=== PATIENT | male | born 1930 | race Caucasian/White ===

== ENCOUNTER 2018-12-23 19:41 | Inpatient (IN) ==
[2018-12-23] MEDS ORDERED: ADENOSINE 6 MG/2 ML VIAL ONE (19:53)
[2018-12-23] MEDS ORDERED: SODIUM CHLORIDE 0.9% 1,000 ML IV ONE (19:55)
[2018-12-23] MEDS ORDERED: DILTIAZEM 50 MG/10 ML VIAL IV ONE (20:00)
[2018-12-23] MEDS ORDERED: MIDAZOLAM 2 MG/2 ML VIAL ONE (20:00)
[2018-12-23] MEDS ORDERED: dilTIAZem Drip 125 MG/125 ML PREMIX IV ONE (20:06)
[2018-12-23] MEDS ORDERED: ADENOSINE 6 MG/2 ML VIAL IV STA ×2 (20:11)
[2018-12-23] MEDS ORDERED: AMIODARONE INJ 150 MG in DEXTROSE 5% 100 ML IV STA (20:11)
[2018-12-23] MEDS ORDERED: SODIUM CHLORIDE 0.9% 500 ML IV STA (20:11)
[2018-12-23] MEDS ORDERED: DILTIAZEM 50 MG/10 ML VIAL IV STA (20:11)
[2018-12-23] MEDS ORDERED: AMIODARONE 150 MG/3 ML VIAL ONE (20:17)
[2018-12-23] MEDS ORDERED: POTASSIUM CHLORIDE 20 MEQ TABLET PO ONE ×2 (20:27→22:00)
[2018-12-23] MEDS ORDERED: MAGNESIUM SULF RIDER 50 ML IV ONE (20:28)
[2018-12-23] MEDS ORDERED: dilTIAZem Drip 125 MG/125 ML PREMIX IV SCH ×2 (20:30→23:45)
[2018-12-23 20:35] LABS: Basophils % 0.2 % (0.0-0.8); Hematocrit 37.1 VOL% (42.0-52.0); Hemoglobin 12.2 GM/DL (14.0-18.0); Immature Granulocytes % 0.3 %; Immature Granulocytes Absolute 0.03 #; Lymphocytes # 0.9 10*3/uL (1.4-4.0); Lymphocytes % 9.9 % (21.2-54.2); Mean Corpuscular HGB Conc 32.9 GM/DL (32-36); Mean Corpuscular Volume 96.9 FL (87-102); Mean Platelet Volume 11.8 FL (9.6-12.0); Monocytes % 8.5 % (1.7-12.7); Neutrophils % 81.1 % (38.7-73.9); Platelet Count 164 T/CUMM (130-400); Red Blood Count 3.83 MC/CUMM (3.8-5.5); Red Cell Distribution Width 13.4 % (9.3-17.3); White Blood Count 9.3 T/CUMM (4-12)
[2018-12-23 20:42] LABS: PT Patient Result 10.8 SECS (9.6-12.2)
[2018-12-23] MEDS: AMIODARONE INJ 450 MG in DEXTROSE 5% 241 ML IV SCH (20:55)
[2018-12-23 20:56] LABS: Bilirubin,Total 0.9 MG/DL (0.2-1.0); CKMB % 12.9 %; Calcium 8.8 MG/DL (8.5-10.1); Osmolality,Calculated 296.3 MOS/KG (273-304); Thyroid Stimulating Hormone 1.49 uIU/ml (0.358-3.74); Total Protein 6.9 G/DL (6.4-8.3)
[2018-12-23 21:00] LABS: Troponin I 3.63 NG/ML (0.00-0.045)
[2018-12-23] MEDS ORDERED: MAGNESIUM SULF RIDER 2 GM in PREMIX 1 EACH IV ONE (21:59)
[2018-12-23] MEDS ORDERED: FUROSEMIDE 20 MG/2 ML VIAL IV STA (22:30)
[2018-12-23] MEDS ORDERED: GLUCAGON 1 MG VIAL IM PRN (22:42)
[2018-12-23] MEDS ORDERED: MAGNESIUM SULF RIDER 2 GM in PREMIX 1 EACH IV PRN (22:42)
[2018-12-23] MEDS ORDERED: POTASSIUM CHLORIDE 20 MEQ TABLET PO PRN (22:42)
[2018-12-23] MEDS ORDERED: MECLIZINE 25 MG TABLET PO PRN (22:42)
[2018-12-23] MEDS ORDERED: DEXTROSE 50% 25 GM/50 ML VIAL IV PRN (22:42)
[2018-12-23] MEDS ORDERED: MAGNESIUM SULF RIDER 4 GM in PREMIX 1 EACH IV PRN (22:42)
[2018-12-23 22:48] LABS: Apearance,Urine CLEAR (Clear); Bilirubin,Urine Negative (Negative); Blood, Urine Small mg/dL (Negative); Glucose,Urine (UA) Negative (Negative); Hyaline Casts,Urine 42 /LPF (0-3); Ketones,Urine Negative (Negative); Mucus,Urine Occasional /LPF (Occasional); Nitrite,Urine Negative (Negative); Protein,Urine 100 MG/DL; RBC,Urine 3 /HPF (0-4); Squamous Epithelial Cell,Urine Occasional /HPF (0-10); Urine Color Yellow (Yellow); Urine Urobilinogen < 2.0 EU/DL (0.2-1.0); WBC,Urine 4 /HPF (0-6)
[2018-12-23] MEDS ORDERED: METOPROLOL TARTRATE 5 MG/5 ML VIAL IV ONE (23:05)
[2018-12-23] MEDS: METOPROLOL TARTRATE 5 MG/5 ML VIAL IV SCH ×3 (23:06→23:17)
[2018-12-23 23:45] LABS: CKMB % 13.6 %
[2018-12-23 23:47] LABS: Troponin I 4.83 NG/ML (0.00-0.045)
[2018-12-23] MEDS: ASCORBIC ACID 500 MG TABLET PO SCH (23:56)
[2018-12-24] MEDS ORDERED: ENOXAPARIN 100 MG/ML SYRINGE SUBCUT SCH
[2018-12-24] MEDS ORDERED: CLORAZEPATE 7.5 MG TABLET PO PRN (00:07)
[2018-12-24] MEDS: SODIUM CHLORIDE 0.9% 1,000 ML IV SCH ×2 (00:14→21:59)
[2018-12-24] MEDS: INSULIN REGULAR 100 UNIT/ML SUBCUT SCH ×4 (00:14→18:09)
[2018-12-24] MEDS: METOPROLOL TARTRATE 5 MG/5 ML VIAL IV SCH ×2 (00:18→06:09)
[2018-12-24] MEDS ORDERED: HEPARIN/NACL 0.9% 2 UNITS/ML 1,000 ML IV ONE (00:57)
[2018-12-24] MEDS ORDERED: LIDOCAINE 1% 20 ML VIAL ONE ×2 (00:57→01:04)
[2018-12-24] MEDS ORDERED: METOPROLOL TARTRATE 5 MG/5 ML VIAL IV ONE ×2 (01:01→01:27)
[2018-12-24] MEDS ORDERED: NITROGLYCERIN DRIP 50 MG/250 ML BOTTLE IV ONE (01:12)
[2018-12-24] MEDS ORDERED: VERAPAMIL 5 MG/2 ML VIAL ONE (01:12)
[2018-12-24] MEDS ORDERED: MIDAZOLAM 2 MG/2 ML VIAL ONE (01:15)
[2018-12-24] MEDS ORDERED: HYDROmorphone 2 MG/1 ML VIAL ONE (01:23)
[2018-12-24] MEDS ORDERED: BIVALIRUDIN 250 MG VIAL IV ONE (01:24)
[2018-12-24 01:39] LABS: Apearance,Urine Slightly Hazy (Clear); Bacteria,Urine Occasional /HPF (Few); Bilirubin,Urine Negative (Negative); Blood, Urine Small mg/dL (Negative); Glucose,Urine (UA) Negative (Negative); Hyaline Casts,Urine 12 /LPF (0-3); Ketones,Urine Negative (Negative); Mucus,Urine Occasional /LPF (Occasional); Nitrite,Urine Negative (Negative); Protein,Urine 100 MG/DL; RBC,Urine 3 /HPF (0-4); Squamous Epithelial Cell,Urine Occasional /HPF (0-10); Urine Color Yellow (Yellow); Urine Urobilinogen < 2.0 EU/DL (0.2-1.0); WBC,Urine 5 /HPF (0-6)
[2018-12-24] MEDS ORDERED: TICAGRELOR 90 MG TABLET ONE (01:40)
[2018-12-24 04:34] LABS: Basophils % 0.2 % (0.0-0.8); Hematocrit 38.7 VOL% (42.0-52.0); Hemoglobin 11.8 GM/DL (14.0-18.0); Immature Granulocytes % 0.6 %; Immature Granulocytes Absolute 0.06 #; Lymphocytes % 10.1 % (21.2-54.2); Mean Corpuscular HGB Conc 30.5 GM/DL (32-36); Mean Corpuscular Volume 102.9 FL (87-102); Mean Platelet Volume 11.8 FL (9.6-12.0); Monocytes % 8.4 % (1.7-12.7); Neutrophils % 80.7 % (38.7-73.9); Platelet Count 145 T/CUMM (130-400); Red Blood Count 3.76 MC/CUMM (3.8-5.5); Red Cell Distribution Width 13.5 % (9.3-17.3); White Blood Count 9.8 T/CUMM (4-12)
[2018-12-24] MEDS: ONDANSETRON 4 MG/2 ML VIAL IV PRN ×2 (04:37→09:29)
[2018-12-24 05:22] LABS: CKMB % 12.9 %
[2018-12-24 05:24] LABS: Troponin I 7.08 NG/ML (0.00-0.045)
[2018-12-24] MEDS: AMIODARONE INJ 450 MG in DEXTROSE 5% 241 ML IV SCH ×2 (05:25→21:35)
[2018-12-24 05:28] LABS: Albumin 2.8 G/DL (3.4-5.0); Bilirubin,Total 0.8 MG/DL (0.2-1.0); Calcium 8.7 MG/DL (8.5-10.1); Osmolality,Calculated 298.3 MOS/KG (273-304); Risk Ratio 3.19; Thyroid Stimulating Hormone 2.37 uIU/ml (0.358-3.74); Total Protein 6.6 G/DL (6.4-8.3); VLDL CHOLESTEROL 14.2 MG/DL
[2018-12-24 07:20] LABS: CKMB % 14.6 %
[2018-12-24 07:27] LABS: Troponin I 11.2 NG/ML (0.00-0.045)
[2018-12-24] MEDS ORDERED: FUROSEMIDE 20 MG/2 ML VIAL IV SCH (08:00)
[2018-12-24] MEDS ORDERED: CARVEDILOL 6.25 MG TABLET PO SCH (08:00)
[2018-12-24] MEDS ORDERED: AMIODARONE INJ 450 MG in DEXTROSE 5% 241 ML IV SCH ×2 (08:00→12:30)
[2018-12-24] MEDS ORDERED: hydroCHLOROthiazide 25 MG TABLET PO SCH (09:00)
[2018-12-24] MEDS ORDERED: Ergocalciferol (Vitamin D2) 2,000 UNIT PO SCH (09:00)
[2018-12-24] MEDS ORDERED: ALLOPURINOL 100 MG TABLET PO SCH (09:00)
[2018-12-24] MEDS ORDERED: LISINOPRIL 20 MG TABLET PO SCH (09:00)
[2018-12-24] MEDS ORDERED: POTASSIUM CHLORIDE 10 MEQ TABLET PO SCH (09:00)
[2018-12-24] MEDS ORDERED: glipiZIDE 10 MG TABLET PO SCH (09:00)
[2018-12-24] MEDS ORDERED: FUROSEMIDE 40 MG TABLET PO SCH (09:00)
[2018-12-24] MEDS: TICAGRELOR 90 MG TABLET PO SCH ×2 (09:16→20:10)
[2018-12-24] MEDS: ASCORBIC ACID 500 MG TABLET PO SCH ×2 (09:17→20:10)
[2018-12-24] MEDS: PANTOPRAZOLE 40 MG TABLET PO SCH (09:17)
[2018-12-24] MEDS ORDERED: CARVEDILOL 3.125 MG TABLET PO SCH (11:01)
[2018-12-24] MEDS ORDERED: AMIODARONE 200 MG TABLET PO SCH (11:15)
[2018-12-24 12:06] LABS: % Iron Saturation 18.3 % (18-50); Uric Acid 8.2 MG/DL (3.5-7.2)
[2018-12-24] MEDS ORDERED: MAGNESIUM HYDROXIDE SUSP 30 ML UDCUP PO ONE (12:39)
[2018-12-24] MEDS ORDERED: BISACODYL 5 MG TABLET PO PRN (12:40)
[2018-12-24 14:52] LABS: Creatinine,Urine Random 137 MG/DL; Total Protein,Urine Random 301 MG/DL; Urea Nitrogen, Urine Random 253 MG/DL
[2018-12-24] MEDS: SODIUM BICARB INJ 100 MEQ in STERILE WATER INJ 1,000 ML IV SCH (14:54)
[2018-12-24] MEDS: miSOPROStol 200 MCG TABLET PO SCH ×3 (14:54→20:10)
[2018-12-24 15:24] LABS: CKMB % 7.5 %
[2018-12-24 15:30] LABS: Troponin I 15.2 NG/ML (0.00-0.045)
[2018-12-24] MEDS: ALBUTEROL/IPRATROPIUM 3 ML NEB RESP TX SCH ×2 (18:06→20:25)
[2018-12-24 18:11] LABS: ABG Oxygen Saturation 37.7 % (95-100); ABG PCO2 47.8 MM HG (35-48); ABG PH 7.227 (7.35-7.45); ABG TCO2 18.3 MMOL/L (23-27); Allen Test Positive
[2018-12-24 18:15] LABS: ABG PO2 28.8 MM HG (80-95)
[2018-12-24] MEDS: ASPIRIN EC 81 MG TABLET PO SCH (18:15)
[2018-12-24] MEDS: methylPREDNISolone SOD SUC 40 MG/1 ML VIAL IV SCH (18:16)
[2018-12-24] MEDS: ALFUZOSIN 10 MG TABLET PO SCH (18:16)
[2018-12-24 18:38] LABS: ABG Base Excess -8.5 MMOL/L (-2.5-2.5); ABG HCO3 17.6 MMOL/L (20-26); ABG Oxygen Saturation 95.8 % (95-100); ABG PCO2 36.9 MM HG (35-48); ABG PH 7.285 (7.35-7.45); ABG PO2 97.1 MM HG (80-95); ABG TCO2 15.8 MMOL/L (23-27); Allen Test Positive
[2018-12-24] MEDS: ROSUVASTATIN 20 MG TABLET PO SCH (20:11)
[2018-12-24] MEDS: CARVEDILOL 3.125 MG TABLET PO SCH (20:11)
[2018-12-24] MEDS ORDERED: SIMVASTATIN 20 MG TABLET PO SCH (21:00)
[2018-12-25] MEDS: ALBUTEROL/IPRATROPIUM 3 ML NEB RESP TX SCH ×4 (00:25→19:15)
[2018-12-25] MEDS: INSULIN REGULAR 100 UNIT/ML SUBCUT SCH ×4 (01:54→18:12)
[2018-12-25] MEDS: methylPREDNISolone SOD SUC 40 MG/1 ML VIAL IV SCH ×3 (01:54→17:16)
[2018-12-25 04:00] LABS: Basophils % 0.1 % (0.0-0.8); Hematocrit 33.1 VOL% (42.0-52.0); Hemoglobin 10.5 GM/DL (14.0-18.0); Immature Granulocytes % 0.8 %; Lymphocytes # 0.6 10*3/uL (1.4-4.0); Lymphocytes % 4.5 % (21.2-54.2); Mean Corpuscular HGB Conc 31.7 GM/DL (32-36); Mean Corpuscular Volume 99.1 FL (87-102); Mean Platelet Volume 12.5 FL (9.6-12.0); Monocytes % 4.7 % (1.7-12.7); Neutrophils % 89.9 % (38.7-73.9); Platelet Count 109 T/CUMM (130-400); Red Blood Count 3.34 MC/CUMM (3.8-5.5); Red Cell Distribution Width 13.2 % (9.3-17.3); White Blood Count 13.1 T/CUMM (4-12)
[2018-12-25 04:24] LABS: Band Neutrophils 1 % (0-10); Hypochromasia 1+; Lymphocytes 3 % (20-55); Ovalocytes Slight; Platelet Estimate Decreased; Segmented Neutrophils 92 % (50-85); Total Cells Counted 100
[2018-12-25 04:40] LABS: Albumin 2.6 G/DL (3.4-5.0); Calcium 7.5 MG/DL (8.5-10.1); Calcium 7.8 MG/DL (8.5-10.1); Osmolality,Calculated 305.3 MOS/KG (273-304)
[2018-12-25 05:12] LABS: CKMB % 3.1 %
[2018-12-25 05:13] LABS: Troponin I 12.1 NG/ML (0.00-0.045)
[2018-12-25] MEDS: SODIUM BICARB INJ 100 MEQ in STERILE WATER INJ 1,000 ML IV SCH ×4 (06:18→23:33)
[2018-12-25] MEDS: miSOPROStol 200 MCG TABLET PO SCH ×4 (09:21→20:11)
[2018-12-25] MEDS: ASPIRIN EC 81 MG TABLET PO SCH (09:22)
[2018-12-25] MEDS: TICAGRELOR 90 MG TABLET PO SCH ×2 (09:22→20:11)
[2018-12-25] MEDS: ASCORBIC ACID 500 MG TABLET PO SCH ×2 (09:22→20:11)
[2018-12-25] MEDS: CARVEDILOL 3.125 MG TABLET PO SCH ×2 (09:22→17:14)
[2018-12-25] MEDS: PANTOPRAZOLE 40 MG TABLET PO SCH (09:22)
[2018-12-25 12:16] LABS: Albumin 2.7 G/DL (3.4-5.0); Calcium 7.3 MG/DL (8.5-10.1); Osmolality,Calculated 307.5 MOS/KG (273-304)
[2018-12-25 12:18] LABS: CKMB % 2.8 %
[2018-12-25 12:20] LABS: Troponin I 9.61 NG/ML (0.00-0.045)
[2018-12-25] MEDS ORDERED: FUROSEMIDE 40 MG/4 ML VIAL IV ONE (12:44)
[2018-12-25] MEDS ORDERED: FUROSEMIDE 40 MG/4 ML VIAL ONE (12:49)
[2018-12-25] MEDS: PIPERACILLIN/TAZOBACTAM 3,375 MG in SODIUM CHLORIDE 0.9% 100 ML IV SCH (13:05)
[2018-12-25] MEDS: AMIODARONE INJ 450 MG in DEXTROSE 5% 241 ML IV SCH (14:18)
[2018-12-25] MEDS: ALFUZOSIN 10 MG TABLET PO SCH (17:11)
[2018-12-25] MEDS: ROSUVASTATIN 20 MG TABLET PO SCH (20:11)
[2018-12-25] MEDS: AMIODARONE 200 MG TABLET PO SCH (20:11)
[2018-12-26] MEDS: PIPERACILLIN/TAZOBACTAM 3,375 MG in SODIUM CHLORIDE 0.9% 100 ML IV SCH ×2 (00:09→11:00)
[2018-12-26] MEDS: INSULIN REGULAR 100 UNIT/ML SUBCUT SCH ×4 (00:09→17:48)
[2018-12-26] MEDS: ALBUTEROL/IPRATROPIUM 3 ML NEB RESP TX SCH ×4 (00:19→19:40)
[2018-12-26] MEDS: methylPREDNISolone SOD SUC 40 MG/1 ML VIAL IV SCH ×3 (02:41→17:54)
[2018-12-26 04:19] LABS: Basophils % 0.1 % (0.0-0.8); Hematocrit 31.6 VOL% (42.0-52.0); Hemoglobin 10.4 GM/DL (14.0-18.0); Immature Granulocytes % 0.7 %; Immature Granulocytes Absolute 0.09 #; Lymphocytes # 0.5 10*3/uL (1.4-4.0); Lymphocytes % 3.8 % (21.2-54.2); Mean Corpuscular HGB Conc 32.9 GM/DL (32-36); Mean Corpuscular Volume 94.6 FL (87-102); Mean Platelet Volume 13.1 FL (9.6-12.0); Monocytes % 4.6 % (1.7-12.7); NRBC # 0.05 10*3/uL; Neutrophils % 90.8 % (38.7-73.9); Platelet Count 112 T/CUMM (130-400); Red Blood Count 3.34 MC/CUMM (3.8-5.5); Red Cell Distribution Width 13.1 % (9.3-17.3); White Blood Count 13.5 T/CUMM (4-12)
[2018-12-26 04:36] LABS: Calcium 7.1 MG/DL (8.5-10.1)
[2018-12-26 04:38] LABS: CKMB % 2.2 %
[2018-12-26 04:41] LABS: Albumin 2.4 G/DL (3.4-5.0); Calcium 6.8 MG/DL (8.5-10.1); Hypochromasia 1+; Lymphocytes 1 % (20-55); Osmolality,Calculated 309.1 MOS/KG (273-304); Ovalocytes Slight; Platelet Estimate Decreased; Segmented Neutrophils 95 % (50-85); Total Cells Counted 100
[2018-12-26 04:49] LABS: Troponin I 6.57 NG/ML (0.00-0.045)
[2018-12-26] MEDS: CARVEDILOL 3.125 MG TABLET PO SCH ×2 (09:58→17:48)
[2018-12-26] MEDS: PANTOPRAZOLE 40 MG TABLET PO SCH (09:59)
[2018-12-26] MEDS: TICAGRELOR 90 MG TABLET PO SCH ×2 (09:59→20:12)
[2018-12-26] MEDS: AMIODARONE 200 MG TABLET PO SCH (09:59)
[2018-12-26] MEDS: ASCORBIC ACID 500 MG TABLET PO SCH ×2 (09:59→20:12)
[2018-12-26] MEDS: ASPIRIN EC 81 MG TABLET PO SCH (09:59)
[2018-12-26] MEDS: miSOPROStol 200 MCG TABLET PO SCH (09:59)
[2018-12-26] MEDS: SODIUM BICARB INJ 100 MEQ in STERILE WATER INJ 1,000 ML IV SCH ×2 (10:46→22:00)
[2018-12-26] MEDS: ALFUZOSIN 10 MG TABLET PO SCH (17:48)
[2018-12-26] MEDS: ROSUVASTATIN 20 MG TABLET PO SCH (20:12)
[2018-12-27] MEDS: PIPERACILLIN/TAZOBACTAM 3,375 MG in SODIUM CHLORIDE 0.9% 100 ML IV SCH (00:16)
[2018-12-27] MEDS: INSULIN REGULAR 100 UNIT/ML SUBCUT SCH ×4 (00:16→18:38)
[2018-12-27] MEDS: ALBUTEROL/IPRATROPIUM 3 ML NEB RESP TX SCH ×4 (01:50→19:52)
[2018-12-27] MEDS: methylPREDNISolone SOD SUC 40 MG/1 ML VIAL IV SCH ×2 (03:09→09:44)
[2018-12-27 05:57] LABS: Hematocrit 32.9 VOL% (42.0-52.0); Hemoglobin 11.1 GM/DL (14.0-18.0); Immature Granulocytes Absolute 0.11 #; Lymphocytes # 0.4 10*3/uL (1.4-4.0); Lymphocytes % 3.7 % (21.2-54.2); Mean Corpuscular HGB Conc 33.7 GM/DL (32-36); Mean Corpuscular Volume 92.9 FL (87-102); Mean Platelet Volume 12.7 FL (9.6-12.0); Monocytes % 4.6 % (1.7-12.7); NRBC # 0.03 10*3/uL; Neutrophils % 90.7 % (38.7-73.9); Platelet Count 116 T/CUMM (130-400); Red Blood Count 3.54 MC/CUMM (3.8-5.5); Red Cell Distribution Width 12.9 % (9.3-17.3)
[2018-12-27 06:16] LABS: Platelet Estimate Adequate; Polychromasia Few; Segmented Neutrophils 95 % (50-85); Total Cells Counted 100
[2018-12-27 06:50] LABS: Albumin 2.2 G/DL (3.4-5.0); Calcium 6.5 MG/DL (8.5-10.1)
[2018-12-27] MEDS ORDERED: FUROSEMIDE 40 MG/4 ML VIAL IV ONE (09:08)
[2018-12-27] MEDS: ASCORBIC ACID 500 MG TABLET PO SCH ×2 (09:47→21:00)
[2018-12-27] MEDS: ASPIRIN EC 81 MG TABLET PO SCH (09:47)
[2018-12-27] MEDS: CARVEDILOL 3.125 MG TABLET PO SCH ×2 (09:47→18:38)
[2018-12-27] MEDS: PANTOPRAZOLE 40 MG TABLET PO SCH (09:48)
[2018-12-27] MEDS: TICAGRELOR 90 MG TABLET PO SCH ×2 (09:48→20:59)
[2018-12-27] MEDS ORDERED: CALCIUM GLUCONATE 2,000 MG in SODIUM CHLORIDE 0.9% 100 ML IV ONE (11:00)
[2018-12-27] MEDS: cefTRIAXone 2,000 MG in SYRINGE 1 EACH IV SCH (11:37)
[2018-12-27] MEDS: INSULIN GLARGINE 100 UNIT/ML SUBCUT SCH (12:20)
[2018-12-27] MEDS: AZITHROMYCIN INJ 250 MG in SODIUM CHLORIDE 0.9% 250 ML IV SCH (13:47)
[2018-12-27] MEDS: miSOPROStol 200 MCG TABLET PO SCH ×3 (13:53→21:00)
[2018-12-27] MEDS: ACETAMINOPHEN/CODEINE 300-30 MG TABLET PO PRN (16:20)
[2018-12-27] MEDS: CLORAZEPATE 7.5 MG TABLET PO PRN (17:05)
[2018-12-27] MEDS: ALFUZOSIN 10 MG TABLET PO SCH (18:38)
[2018-12-27] MEDS: METHOCARBAMOL 750 MG TABLET PO PRN (19:36)
[2018-12-27] MEDS: ROSUVASTATIN 20 MG TABLET PO SCH (20:59)
[2018-12-27] MEDS: SODIUM BICARB INJ 100 MEQ in STERILE WATER INJ 1,000 ML IV SCH (22:24)
[2018-12-28] MEDS: ALBUTEROL/IPRATROPIUM 3 ML NEB RESP TX SCH ×4 (00:24→19:33)
[2018-12-28] MEDS: INSULIN REGULAR 100 UNIT/ML SUBCUT SCH ×4 (01:29→18:13)
[2018-12-28 04:42] LABS: Basophils % 0.1 % (0.0-0.8); Hematocrit 35.8 VOL% (42.0-52.0); Hemoglobin 12.2 GM/DL (14.0-18.0); Immature Granulocytes Absolute 0.14 #; Lymphocytes # 0.4 10*3/uL (1.4-4.0); Lymphocytes % 3.1 % (21.2-54.2); Mean Corpuscular HGB Conc 34.1 GM/DL (32-36); Mean Corpuscular Volume 92.3 FL (87-102); Mean Platelet Volume 12.9 FL (9.6-12.0); Monocytes % 6.5 % (1.7-12.7); NRBC # 0.02 10*3/uL; Neutrophils % 89.3 % (38.7-73.9); Platelet Count 140 T/CUMM (130-400); Red Blood Count 3.88 MC/CUMM (3.8-5.5); Red Cell Distribution Width 12.7 % (9.3-17.3); White Blood Count 13.4 T/CUMM (4-12)
[2018-12-28 05:03] LABS: Calcium 7.2 MG/DL (8.5-10.1); Osmolality,Calculated 309.8 MOS/KG (273-304)
[2018-12-28 05:06] LABS: Albumin 2.3 G/DL (3.4-5.0); Calcium 6.9 MG/DL (8.5-10.1)
[2018-12-28 05:14] LABS: Hypochromasia Slight; Lymphocytes 3 % (20-55); Platelet Estimate Adequate; Segmented Neutrophils 91 % (50-85); Total Cells Counted 100
[2018-12-28 05:24] LABS: CKMB % 2.2 %
[2018-12-28 05:25] LABS: Troponin I 2.55 NG/ML (0.00-0.045)
[2018-12-28] MEDS: ASPIRIN EC 81 MG TABLET PO SCH (08:41)
[2018-12-28] MEDS: ASCORBIC ACID 500 MG TABLET PO SCH ×2 (08:41→20:10)
[2018-12-28] MEDS: miSOPROStol 200 MCG TABLET PO SCH ×4 (08:41→20:09)
[2018-12-28] MEDS: TICAGRELOR 90 MG TABLET PO SCH ×2 (08:41→20:09)
[2018-12-28] MEDS: CARVEDILOL 3.125 MG TABLET PO SCH ×2 (08:42→16:48)
[2018-12-28] MEDS: INSULIN GLARGINE 100 UNIT/ML SUBCUT SCH (08:42)
[2018-12-28] MEDS: PANTOPRAZOLE 40 MG TABLET PO SCH (08:43)
[2018-12-28] MEDS ORDERED: FUROSEMIDE 100 MG/10 ML VIAL IV ONE (09:14)
[2018-12-28] MEDS: metOLazone 5 MG TABLET PO SCH (09:27)
[2018-12-28] MEDS: ACETAMINOPHEN/CODEINE 300-30 MG TABLET PO PRN (09:28)
[2018-12-28] MEDS: HYDROCORTISONE 2.5% RECTAL CREAM 30 GM TUBE TOP PRN ×2 (09:40→17:45)
[2018-12-28] MEDS ORDERED: FUROSEMIDE 40 MG/4 ML VIAL ONE (09:43)
[2018-12-28] MEDS ORDERED: FUROSEMIDE 20 MG/2 ML VIAL ONE (09:43)
[2018-12-28] MEDS: OXYBUTYNIN 5 MG TABLET PO PRN ×2 (09:44→21:29)
[2018-12-28] MEDS: cefTRIAXone 2,000 MG in SYRINGE 1 EACH IV SCH (10:56)
[2018-12-28] MEDS: AZITHROMYCIN INJ 250 MG in SODIUM CHLORIDE 0.9% 250 ML IV SCH (13:10)
[2018-12-28] MEDS: FUROSEMIDE 100 MG/10 ML VIAL IV SCH (16:10)
[2018-12-28] MEDS: METHOCARBAMOL 750 MG TABLET PO PRN (17:22)
[2018-12-28] MEDS: ONDANSETRON 4 MG/2 ML VIAL IV PRN (17:33)
[2018-12-28] MEDS: ALFUZOSIN 10 MG TABLET PO SCH (18:13)
[2018-12-28] MEDS: ROSUVASTATIN 20 MG TABLET PO SCH (20:09)
[2018-12-28] MEDS ORDERED: POTASSIUM CHLORIDE 20 MEQ TABLET PO ONE (20:26)
[2018-12-29] MEDS: INSULIN REGULAR 100 UNIT/ML SUBCUT SCH ×4 (00:09→18:09)
[2018-12-29] MEDS: ALBUTEROL/IPRATROPIUM 3 ML NEB RESP TX SCH ×4 (01:17→19:37)
[2018-12-29 04:30] LABS: Basophils % 0.1 % (0.0-0.8); Hematocrit 35.1 VOL% (42.0-52.0); Hemoglobin 11.8 GM/DL (14.0-18.0); Immature Granulocytes % 0.9 %; Immature Granulocytes Absolute 0.13 #; Lymphocytes # 0.6 10*3/uL (1.4-4.0); Lymphocytes % 3.9 % (21.2-54.2); Mean Corpuscular HGB Conc 33.6 GM/DL (32-36); Mean Corpuscular Volume 92.4 FL (87-102); Mean Platelet Volume 12.3 FL (9.6-12.0); Neutrophils % 85.1 % (38.7-73.9); Platelet Count 152 T/CUMM (130-400); Red Cell Distribution Width 12.7 % (9.3-17.3); White Blood Count 14.5 T/CUMM (4-12)
[2018-12-29] MEDS: OXYBUTYNIN 5 MG TABLET PO PRN ×2 (04:40→18:10)
[2018-12-29 04:45] LABS: Calcium 6.8 MG/DL (8.5-10.1)
[2018-12-29 05:07] LABS: Lymphocytes 1 % (20-55); Platelet Estimate Adequate; Segmented Neutrophils 93 % (50-85); Total Cells Counted 100
[2018-12-29] MEDS: metOLazone 5 MG TABLET PO SCH (09:32)
[2018-12-29] MEDS: miSOPROStol 200 MCG TABLET PO SCH (09:32)
[2018-12-29] MEDS: CARVEDILOL 3.125 MG TABLET PO SCH ×2 (09:57→18:09)
[2018-12-29] MEDS: INSULIN GLARGINE 100 UNIT/ML SUBCUT SCH (09:57)
[2018-12-29] MEDS: ASCORBIC ACID 500 MG TABLET PO SCH ×2 (09:58→20:10)
[2018-12-29] MEDS: PANTOPRAZOLE 40 MG TABLET PO SCH (09:58)
[2018-12-29] MEDS: ASPIRIN EC 81 MG TABLET PO SCH (09:58)
[2018-12-29] MEDS: TICAGRELOR 90 MG TABLET PO SCH ×2 (09:58→20:10)
[2018-12-29] MEDS: ALBUMIN 25% 25 GM in PREMIX 1 EACH IV SCH ×2 (10:12→18:09)
[2018-12-29] MEDS ORDERED: AMIODARONE 200 MG TABLET PO ONE (10:29)
[2018-12-29] MEDS ORDERED: POTASSIUM CHLORIDE 20 MEQ TABLET PO ONE ×2 (10:30→17:59)
[2018-12-29] MEDS ORDERED: SODIUM CHLORIDE 0.9% 1,000 ML IV SCH (11:30)
[2018-12-29] MEDS: cefTRIAXone 2,000 MG in SYRINGE 1 EACH IV SCH (11:50)
[2018-12-29] MEDS: FUROSEMIDE 100 MG/10 ML VIAL IV SCH ×2 (11:50→18:09)
[2018-12-29 14:16] LABS: Apearance,Urine Slightly Hazy (Clear); Bacteria,Urine Occasional /HPF (Few); Bilirubin,Urine Negative (Negative); Blood, Urine Large mg/dL (Negative); Creatinine,Urine Random 42 MG/DL; Glucose,Urine (UA) Negative (Negative); Hyaline Casts,Urine 3 /LPF (0-3); Ketones,Urine Negative (Negative); Mucus,Urine Occasional /LPF (Occasional); Nitrite,Urine Negative (Negative); Protein,Urine Negative; RBC,Urine 185 /HPF (0-4); Squamous Epithelial Cell,Urine Occasional /HPF (0-10); Transitional Epi Cells,Urine Occasional /HPF (<1); Urea Nitrogen, Urine Random 381 MG/DL; Urine Color Yellow (Yellow); Urine Specific Gravity 1.009 (1.001-1.035); Urine Urobilinogen < 2.0 EU/DL (0.2-1.0); WBC,Urine 8 /HPF (0-6)
[2018-12-29] MEDS: ALFUZOSIN 10 MG TABLET PO SCH (18:09)
[2018-12-29] MEDS: AMIODARONE 200 MG TABLET PO SCH (20:10)
[2018-12-29] MEDS: ROSUVASTATIN 20 MG TABLET PO SCH (20:10)
[2018-12-29] MEDS: CLORAZEPATE 7.5 MG TABLET PO PRN (21:25)
[2018-12-29] MEDS: MORPHINE 4 MG/1 ML VIAL IV PRN (21:47)
[2018-12-30] MEDS: INSULIN REGULAR 100 UNIT/ML SUBCUT SCH ×4 (00:29→19:04)
[2018-12-30] MEDS: ALBUTEROL/IPRATROPIUM 3 ML NEB RESP TX SCH ×4 (02:00→19:26)
[2018-12-30] MEDS: ALBUMIN 25% 25 GM in PREMIX 1 EACH IV SCH ×3 (02:55→19:09)
[2018-12-30 04:00] LABS: Basophils % 0.2 % (0.0-0.8); Eosinophils # 0.2 10*3/uL (0.0-0.87); Eosinophils % 1.8 % (0.00-10.9); Hematocrit 31.5 VOL% (42.0-52.0); Hemoglobin 10.5 GM/DL (14.0-18.0); Immature Granulocytes % 0.6 %; Immature Granulocytes Absolute 0.07 #; Lymphocytes # 0.4 10*3/uL (1.4-4.0); Lymphocytes % 3.6 % (21.2-54.2); Mean Corpuscular HGB Conc 33.3 GM/DL (32-36); Mean Corpuscular Volume 92.1 FL (87-102); Mean Platelet Volume 11.9 FL (9.6-12.0); Monocytes % 9.5 % (1.7-12.7); Neutrophils % 84.3 % (38.7-73.9); Platelet Count 134 T/CUMM (130-400); Red Blood Count 3.42 MC/CUMM (3.8-5.5); Red Cell Distribution Width 12.7 % (9.3-17.3); White Blood Count 12.2 T/CUMM (4-12)
[2018-12-30 04:23] LABS: Calcium 6.9 MG/DL (8.5-10.1); Osmolality,Calculated 316.5 MOS/KG (273-304)
[2018-12-30 04:45] LABS: Eosinophils 3 % (0-10); Lymphocytes 4 % (20-55); Platelet Estimate Decreased; Polychromasia Few; Segmented Neutrophils 88 % (50-85); Total Cells Counted 100
[2018-12-30] MEDS ORDERED: POTASSIUM CHLORIDE 20 MEQ TABLET PO ONE (07:58)
[2018-12-30] MEDS ORDERED: POTASSIUM CHLORIDE 20 MEQ/15 ML UDCUP PO ONE ×2 (08:01→12:00)
[2018-12-30] MEDS: ASCORBIC ACID 500 MG TABLET PO SCH ×2 (08:59→20:53)
[2018-12-30] MEDS: AMIODARONE 200 MG TABLET PO SCH ×2 (09:00→20:53)
[2018-12-30] MEDS: TICAGRELOR 90 MG TABLET PO SCH ×2 (09:01→20:54)
[2018-12-30] MEDS: POTASSIUM CHLORIDE 20 MEQ TABLET PO SCH (09:01)
[2018-12-30] MEDS: CARVEDILOL 3.125 MG TABLET PO SCH ×2 (09:01→17:49)
[2018-12-30] MEDS: ASPIRIN EC 81 MG TABLET PO SCH (09:01)
[2018-12-30] MEDS: INSULIN GLARGINE 100 UNIT/ML SUBCUT SCH (09:01)
[2018-12-30] MEDS: PANTOPRAZOLE 40 MG TABLET PO SCH (09:01)
[2018-12-30] MEDS: OXYBUTYNIN 5 MG TABLET PO PRN (09:08)
[2018-12-30] MEDS: MORPHINE 4 MG/1 ML VIAL IV PRN (09:08)
[2018-12-30] MEDS: FUROSEMIDE 100 MG/10 ML VIAL IV SCH (09:24)
[2018-12-30] MEDS ORDERED: DEXT 5% NACL 0.45% KCL 20 MEQ 20 MEQ/1,000 ML BAG IV SCH ×2 (11:00→17:19)
[2018-12-30] MEDS: cefTRIAXone 2,000 MG in SYRINGE 1 EACH IV SCH (11:45)
[2018-12-30] MEDS ORDERED: MAGNESIUM HYDROXIDE SUSP 30 ML UDCUP PO PRN (12:23)
[2018-12-30] MEDS ORDERED: BISACODYL 10 MG SUPP RECTAL PRN (15:31)
[2018-12-30] MEDS ORDERED: LEVALBUTEROL 1.25 MG/3 ML NEB RESP TX ONE (17:16)
[2018-12-30] MEDS ORDERED: FUROSEMIDE 40 MG/4 ML VIAL IV ONE ×2 (17:18→18:15)
[2018-12-30] MEDS ORDERED: FUROSEMIDE 40 MG/4 ML VIAL ONE (17:26)
[2018-12-30] MEDS: ALFUZOSIN 10 MG TABLET PO SCH (17:49)
[2018-12-30 17:58] LABS: ABG Base Excess 5.3 MMOL/L (-2.5-2.5); ABG HCO3 29.1 MMOL/L (20-26); ABG PCO2 42.8 MM HG (35-48); ABG PH 7.451 (7.35-7.45); ABG PO2 64.7 MM HG (80-95); ABG TCO2 26.6 MMOL/L (23-27); Allen Test Positive; Pt O2 Delivery Device Other
[2018-12-30] MEDS: ROSUVASTATIN 20 MG TABLET PO SCH (20:53)
[2018-12-30] MEDS: CLORAZEPATE 7.5 MG TABLET PO PRN (20:53)
[2018-12-31] MEDS: INSULIN REGULAR 100 UNIT/ML SUBCUT SCH ×5 (01:11→23:52)
[2018-12-31] MEDS: ALBUTEROL/IPRATROPIUM 3 ML NEB RESP TX SCH ×4 (01:46→19:18)
[2018-12-31] MEDS: ALBUMIN 25% 25 GM in PREMIX 1 EACH IV SCH ×3 (03:00→19:05)
[2018-12-31 03:23] LABS: Basophils % 0.1 % (0.0-0.8); Eosinophils % 0.1 % (0.00-10.9); Hematocrit 33.5 VOL% (42.0-52.0); Hemoglobin 11.2 GM/DL (14.0-18.0); Immature Granulocytes % 0.8 %; Immature Granulocytes Absolute 0.14 #; Lymphocytes # 0.3 10*3/uL (1.4-4.0); Lymphocytes % 1.9 % (21.2-54.2); Mean Corpuscular HGB Conc 33.4 GM/DL (32-36); Mean Corpuscular Volume 93.1 FL (87-102); Mean Platelet Volume 11.9 FL (9.6-12.0); Neutrophils % 91.1 % (38.7-73.9); Platelet Count 128 T/CUMM (130-400); Red Cell Distribution Width 12.6 % (9.3-17.3); White Blood Count 16.7 T/CUMM (4-12)
[2018-12-31 03:51] LABS: Calcium 7.6 MG/DL (8.5-10.1); Osmolality,Calculated 315.3 MOS/KG (273-304)
[2018-12-31 04:06] LABS: Anisocytosis 1+; Elliptocytes Few; Lymphocytes 1 % (20-55); Macrocytosis 1+; Platelet Estimate Decreased; Segmented Neutrophils 95 % (50-85); Total Cells Counted 100
[2018-12-31] MEDS: AMIODARONE 200 MG TABLET PO SCH ×2 (08:25→21:03)
[2018-12-31] MEDS: CARVEDILOL 3.125 MG TABLET PO SCH (08:26)
[2018-12-31] MEDS: PANTOPRAZOLE 40 MG TABLET PO SCH (08:26)
[2018-12-31] MEDS: ASPIRIN EC 81 MG TABLET PO SCH (08:26)
[2018-12-31] MEDS: POTASSIUM CHLORIDE 20 MEQ TABLET PO SCH (08:26)
[2018-12-31] MEDS: TICAGRELOR 90 MG TABLET PO SCH ×2 (08:26→21:03)
[2018-12-31] MEDS: ASCORBIC ACID 500 MG TABLET PO SCH ×2 (08:26→21:04)
[2018-12-31] MEDS: INSULIN GLARGINE 100 UNIT/ML SUBCUT SCH (08:27)
[2018-12-31] MEDS: POTASSIUM CHLORIDE 20 MEQ/15 ML UDCUP PO SCH ×2 (08:27→16:11)
[2018-12-31] MEDS ORDERED: METOPROLOL TARTRATE 5 MG/5 ML VIAL IV ONE (09:46)
[2018-12-31] MEDS: NYSTATIN 500,000 UNIT/5 ML UDCUP SWISH/SWAL SCH ×4 (09:49→21:04)
[2018-12-31] MEDS ORDERED: SPIRONOLACTONE 25 MG TABLET PO SCH (11:00)
[2018-12-31] MEDS ORDERED: methylPREDNISolone SOD SUC 40 MG/1 ML VIAL IV ONE (12:03)
[2018-12-31] MEDS: miSOPROStol 200 MCG TABLET PO SCH ×3 (12:18→21:04)
[2018-12-31] MEDS: cefTRIAXone 2,000 MG in SYRINGE 1 EACH IV SCH (14:50)
[2018-12-31] MEDS: PIPERACILLIN/TAZOBACTAM 3,375 MG in SODIUM CHLORIDE 0.9% 100 ML IV SCH ×2 (15:50→23:30)
[2018-12-31] MEDS: CARVEDILOL 12.5 MG TABLET PO SCH (17:07)
[2018-12-31] MEDS: ALFUZOSIN 10 MG TABLET PO SCH (17:07)
[2018-12-31] MEDS: methylPREDNISolone SOD SUC 40 MG/1 ML VIAL IV SCH (21:03)
[2018-12-31] MEDS: ROSUVASTATIN 20 MG TABLET PO SCH (21:04)
[2018-12-31] MEDS: METHOCARBAMOL 750 MG TABLET PO PRN (22:11)
[2019-01-01] MEDS: ALBUTEROL/IPRATROPIUM 3 ML NEB RESP TX SCH ×4 (01:31→20:49)
[2019-01-01] MEDS: ALBUMIN 25% 25 GM in PREMIX 1 EACH IV SCH (03:33)
[2019-01-01] MEDS: methylPREDNISolone SOD SUC 40 MG/1 ML VIAL IV SCH ×3 (03:33→20:42)
[2019-01-01 04:34] LABS: Basophils % 0.1 % (0.0-0.8); Hemoglobin 10.5 GM/DL (14.0-18.0); Immature Granulocytes Absolute 0.15 #; Lymphocytes # 0.3 10*3/uL (1.4-4.0); Lymphocytes % 1.7 % (21.2-54.2); Mean Corpuscular HGB Conc 32.8 GM/DL (32-36); Mean Corpuscular Volume 94.4 FL (87-102); Mean Platelet Volume 12.3 FL (9.6-12.0); Monocytes % 2.5 % (1.7-12.7); Neutrophils % 94.7 % (38.7-73.9); Platelet Count 116 T/CUMM (130-400); Red Blood Count 3.39 MC/CUMM (3.8-5.5); White Blood Count 14.5 T/CUMM (4-12)
[2019-01-01 04:49] LABS: Albumin 3.5 G/DL (3.4-5.0); Calcium 7.3 MG/DL (8.5-10.1); Osmolality,Calculated 322.1 MOS/KG (273-304)
[2019-01-01 04:52] LABS: Prealbumin 12.1 MG/DL (20-40)
[2019-01-01 05:04] LABS: Band Neutrophils 1 % (0-10); Hypochromasia 1+; Lymphocytes 1 % (20-55); Platelet Estimate Decreased; Segmented Neutrophils 97 % (50-85); Total Cells Counted 100
[2019-01-01 05:05] LABS: Macrocytosis Slight; Ovalocytes Slight
[2019-01-01] MEDS: INSULIN REGULAR 100 UNIT/ML SUBCUT SCH ×3 (05:32→18:27)
[2019-01-01] MEDS: PIPERACILLIN/TAZOBACTAM 3,375 MG in SODIUM CHLORIDE 0.9% 100 ML IV SCH ×3 (06:47→23:23)
[2019-01-01] MEDS: ASCORBIC ACID 500 MG TABLET PO SCH ×2 (09:19→20:42)
[2019-01-01] MEDS: CARVEDILOL 12.5 MG TABLET PO SCH (09:19)
[2019-01-01] MEDS: TICAGRELOR 90 MG TABLET PO SCH ×2 (09:20→20:42)
[2019-01-01] MEDS: POTASSIUM CHLORIDE 20 MEQ TABLET PO SCH (09:20)
[2019-01-01] MEDS: ASPIRIN EC 81 MG TABLET PO SCH (09:20)
[2019-01-01] MEDS: AMIODARONE 200 MG TABLET PO SCH ×2 (09:21→20:42)
[2019-01-01] MEDS: miSOPROStol 200 MCG TABLET PO SCH ×4 (09:21→20:42)
[2019-01-01] MEDS: INSULIN GLARGINE 100 UNIT/ML SUBCUT SCH (09:22)
[2019-01-01] MEDS: LANSOPRAZOLE ODT 30 MG TABLET PER TUBE SCH (09:22)
[2019-01-01] MEDS: NYSTATIN 500,000 UNIT/5 ML UDCUP SWISH/SWAL SCH ×4 (09:22→20:42)
[2019-01-01] MEDS: OXYBUTYNIN 5 MG TABLET PO PRN (10:40)
[2019-01-01] MEDS: ALFUZOSIN 10 MG TABLET PO SCH (17:10)
[2019-01-01] MEDS: CARVEDILOL 25 MG TABLET PO SCH (17:10)
[2019-01-01] MEDS: FLUoxetine 10 MG CAPSULE PO SCH (20:42)
[2019-01-01] MEDS: ROSUVASTATIN 20 MG TABLET PO SCH (20:42)
[2019-01-02] MEDS: INSULIN REGULAR 100 UNIT/ML SUBCUT SCH ×4 (00:15→18:11)
[2019-01-02] MEDS: ALBUTEROL/IPRATROPIUM 3 ML NEB RESP TX SCH ×4 (01:34→19:28)
[2019-01-02 03:55] LABS: Basophils % 0.1 % (0.0-0.8); Immature Granulocytes % 1.2 %; Lymphocytes # 0.3 10*3/uL (1.4-4.0); Lymphocytes % 1.9 % (21.2-54.2); Mean Corpuscular HGB Conc 32.3 GM/DL (32-36); Mean Corpuscular Volume 95.7 FL (87-102); Mean Platelet Volume 12.2 FL (9.6-12.0); Monocytes % 4.4 % (1.7-12.7); Neutrophils % 92.4 % (38.7-73.9); Platelet Count 130 T/CUMM (130-400); Red Blood Count 3.24 MC/CUMM (3.8-5.5); Red Cell Distribution Width 13.2 % (9.3-17.3)
[2019-01-02 04:29] LABS: Albumin 3.1 G/DL (3.4-5.0); Calcium 7.1 MG/DL (8.5-10.1); Osmolality,Calculated 332.4 MOS/KG (273-304)
[2019-01-02 04:41] LABS: Lymphocytes 4 % (20-55); Platelet Estimate Normal; Segmented Neutrophils 91 % (50-85); Total Cells Counted 100
[2019-01-02 04:42] LABS: Hypochromasia Slight
[2019-01-02 04:43] LABS: Macrocytosis Slight; Ovalocytes Slight
[2019-01-02] MEDS: methylPREDNISolone SOD SUC 40 MG/1 ML VIAL IV SCH ×2 (05:07→18:10)
[2019-01-02] MEDS ORDERED: POTASSIUM CHLORIDE 20 MEQ/15 ML UDCUP PER TUBE ONE (07:52)
[2019-01-02] MEDS: LANSOPRAZOLE ODT 30 MG TABLET PER TUBE SCH (09:00)
[2019-01-02] MEDS: NYSTATIN 500,000 UNIT/5 ML UDCUP SWISH/SWAL SCH ×4 (09:00→21:27)
[2019-01-02] MEDS ORDERED: POTASSIUM CHLORIDE 20 MEQ/15 ML UDCUP PER TUBE SCH ×2 (09:00→11:28)
[2019-01-02] MEDS: miSOPROStol 200 MCG TABLET PO SCH (09:00)
[2019-01-02] MEDS: AMIODARONE 200 MG TABLET PO SCH ×2 (09:00→21:26)
[2019-01-02] MEDS: ASCORBIC ACID 500 MG TABLET PO SCH ×2 (09:01→21:26)
[2019-01-02] MEDS: CARVEDILOL 25 MG TABLET PO SCH ×2 (09:01→17:00)
[2019-01-02] MEDS: INSULIN GLARGINE 100 UNIT/ML SUBCUT SCH (09:01)
[2019-01-02] MEDS: TICAGRELOR 90 MG TABLET PO SCH ×2 (09:01→21:26)
[2019-01-02] MEDS: ASPIRIN CHEW 81 MG TABLET PO SCH (09:01)
[2019-01-02] MEDS: PIPERACILLIN/TAZOBACTAM 3,375 MG in SODIUM CHLORIDE 0.9% 100 ML IV SCH ×3 (09:02→22:01)
[2019-01-02 14:41] LABS: Glomerular Basement Membrane A < 0.2 U; Myeloperoxidase Antibody < 0.2 U
[2019-01-02] MEDS: DESITIN 4OZ/NYSTATIN 15 GRAM MIXTURE PASTE TOP SCH ×2 (17:00→21:27)
[2019-01-02] MEDS: ALFUZOSIN 10 MG TABLET PO SCH (18:13)
[2019-01-02] MEDS: SODIUM CHLORIDE 5% OPH SOLN 15 ML BOTTLE BOTH EYES SCH ×2 (18:43→21:26)
[2019-01-02] MEDS: FLUoxetine 10 MG CAPSULE PO SCH (21:26)
[2019-01-02] MEDS: ROSUVASTATIN 20 MG TABLET PO SCH (21:26)
[2019-01-03] MEDS: ALBUTEROL/IPRATROPIUM 3 ML NEB RESP TX SCH ×4 (00:12→20:06)
[2019-01-03] MEDS: CLORAZEPATE 7.5 MG TABLET PO PRN ×2 (00:24→21:28)
[2019-01-03] MEDS: INSULIN REGULAR 100 UNIT/ML SUBCUT SCH ×7 (00:24→23:59)
[2019-01-03] MEDS: METHOCARBAMOL 750 MG TABLET PO PRN ×2 (04:35→23:47)
[2019-01-03] MEDS: methylPREDNISolone SOD SUC 40 MG/1 ML VIAL IV SCH ×2 (05:45→17:21)
[2019-01-03 05:49] LABS: Basophils % 0.1 % (0.0-0.8); Hematocrit 32.4 VOL% (42.0-52.0); Hemoglobin 10.7 GM/DL (14.0-18.0); Immature Granulocytes % 0.8 %; Immature Granulocytes Absolute 0.14 #; Lymphocytes # 0.4 10*3/uL (1.4-4.0); Lymphocytes % 2.1 % (21.2-54.2); Mean Corpuscular Volume 93.4 FL (87-102); Mean Platelet Volume 12.4 FL (9.6-12.0); Monocytes % 6.6 % (1.7-12.7); Neutrophils % 90.4 % (38.7-73.9); Platelet Count 131 T/CUMM (130-400); Red Blood Count 3.47 MC/CUMM (3.8-5.5); Red Cell Distribution Width 13.3 % (9.3-17.3); White Blood Count 17.8 T/CUMM (4-12)
[2019-01-03 06:06] LABS: Calcium 7.2 MG/DL (8.5-10.1); Osmolality,Calculated 337.5 MOS/KG (273-304)
[2019-01-03 06:14] LABS: Band Neutrophils 1 % (0-10); Lymphocytes 5 % (20-55); Segmented Neutrophils 92 % (50-85); Total Cells Counted 100
[2019-01-03 06:15] LABS: Anisocytosis 1+
[2019-01-03 06:16] LABS: Platelet Estimate Adequate
[2019-01-03] MEDS: INSULIN GLARGINE 100 UNIT/ML SUBCUT SCH (08:36)
[2019-01-03] MEDS: ASCORBIC ACID 500 MG TABLET PO SCH ×2 (08:38→21:27)
[2019-01-03] MEDS: AMIODARONE 200 MG TABLET PO SCH ×2 (08:38→21:27)
[2019-01-03] MEDS: LANSOPRAZOLE ODT 30 MG TABLET PER TUBE SCH (08:38)
[2019-01-03] MEDS: CARVEDILOL 25 MG TABLET PO SCH ×2 (08:39→17:19)
[2019-01-03] MEDS: ASPIRIN CHEW 81 MG TABLET PO SCH (08:39)
[2019-01-03] MEDS: TICAGRELOR 90 MG TABLET PO SCH ×2 (08:39→21:27)
[2019-01-03] MEDS: NYSTATIN 500,000 UNIT/5 ML UDCUP SWISH/SWAL SCH ×4 (08:39→21:29)
[2019-01-03] MEDS: SODIUM CHLORIDE 5% OPH SOLN 15 ML BOTTLE BOTH EYES SCH ×2 (08:40→21:29)
[2019-01-03] MEDS: DESITIN 4OZ/NYSTATIN 15 GRAM MIXTURE PASTE TOP SCH ×2 (08:40→21:30)
[2019-01-03] MEDS: PIPERACILLIN/TAZOBACTAM 3,375 MG in SODIUM CHLORIDE 0.9% 100 ML IV SCH (12:30)
[2019-01-03] MEDS ORDERED: POTASSIUM CHLORIDE 20 MEQ/15 ML UDCUP PER TUBE SCH (13:00)
[2019-01-03] MEDS ORDERED: INSULIN GLARGINE 100 UNIT/ML SUBCUT SCH (15:16)
[2019-01-03] MEDS: ALFUZOSIN 10 MG TABLET PO SCH (17:19)
[2019-01-03] MEDS: FLUoxetine 10 MG CAPSULE PO SCH (21:27)
[2019-01-03] MEDS: cefTRIAXone 1,000 MG in SYRINGE 1 EACH IV SCH (21:28)
[2019-01-03] MEDS: POTASSIUM CHLORIDE 20 MEQ/15 ML UDCUP PER TUBE SCH (21:29)
[2019-01-03] MEDS: OXYBUTYNIN 5 MG TABLET PO PRN (21:30)
[2019-01-03] MEDS: ROSUVASTATIN 20 MG TABLET PO SCH (21:35)
[2019-01-04] MEDS: ALBUTEROL/IPRATROPIUM 3 ML NEB RESP TX SCH ×4 (01:04→21:05)
[2019-01-04 04:56] LABS: Basophils % 0.2 % (0.0-0.8); Hematocrit 34.9 VOL% (42.0-52.0); Hemoglobin 11.4 GM/DL (14.0-18.0); Immature Granulocytes % 0.9 %; Immature Granulocytes Absolute 0.23 #; Lymphocytes # 0.5 10*3/uL (1.4-4.0); Lymphocytes % 2.1 % (21.2-54.2); Mean Corpuscular HGB Conc 32.7 GM/DL (32-36); Mean Corpuscular Volume 93.6 FL (87-102); Monocytes % 7.5 % (1.7-12.7); Neutrophils % 89.3 % (38.7-73.9); Platelet Count 135 T/CUMM (130-400); Red Blood Count 3.73 MC/CUMM (3.8-5.5); Red Cell Distribution Width 13.1 % (9.3-17.3); White Blood Count 24.8 T/CUMM (4-12)
[2019-01-04 05:21] LABS: Albumin 2.9 G/DL (3.4-5.0); Calcium 7.2 MG/DL (8.5-10.1); Osmolality,Calculated 332.3 MOS/KG (273-304)
[2019-01-04 05:25] LABS: Albumin 2.8 G/DL (3.4-5.0); Bilirubin,Total 0.8 MG/DL (0.2-1.0); Calcium 7.5 MG/DL (8.5-10.1); Osmolality,Calculated 335.1 MOS/KG (273-304); Total Protein 5.7 G/DL (6.4-8.3)
[2019-01-04 05:30] LABS: Lymphocytes 1 % (20-55); Segmented Neutrophils 94 % (50-85); Total Cells Counted 100
[2019-01-04 05:31] LABS: Anisocytosis 1+; Ovalocytes 1+; Platelet Estimate Adequate
[2019-01-04] MEDS: INSULIN REGULAR 100 UNIT/ML SUBCUT SCH ×3 (05:32→17:09)
[2019-01-04] MEDS: methylPREDNISolone SOD SUC 40 MG/1 ML VIAL IV SCH ×2 (05:32→17:09)
[2019-01-04] MEDS: CARVEDILOL 25 MG TABLET PO SCH ×2 (08:59→17:04)
[2019-01-04] MEDS: TICAGRELOR 90 MG TABLET PO SCH ×2 (09:00→21:22)
[2019-01-04] MEDS: ASPIRIN CHEW 81 MG TABLET PO SCH (09:00)
[2019-01-04] MEDS: AMIODARONE 200 MG TABLET PO SCH ×2 (09:00→21:22)
[2019-01-04] MEDS: ASCORBIC ACID 500 MG TABLET PO SCH ×2 (09:00→21:22)
[2019-01-04] MEDS: LANSOPRAZOLE ODT 30 MG TABLET PER TUBE SCH (09:01)
[2019-01-04] MEDS: DESITIN 4OZ/NYSTATIN 15 GRAM MIXTURE PASTE TOP SCH ×2 (09:02→21:23)
[2019-01-04] MEDS: SODIUM CHLORIDE 5% OPH SOLN 15 ML BOTTLE BOTH EYES SCH ×2 (09:02→21:23)
[2019-01-04] MEDS: POTASSIUM CHLORIDE 20 MEQ/15 ML UDCUP PER TUBE SCH ×2 (09:02→21:22)
[2019-01-04] MEDS: NYSTATIN 500,000 UNIT/5 ML UDCUP SWISH/SWAL SCH ×4 (09:02→21:22)
[2019-01-04] MEDS ORDERED: FLUoxetine 10 MG CAPSULE PO ONE (13:41)
[2019-01-04] MEDS: ALFUZOSIN 10 MG TABLET PO SCH (17:04)
[2019-01-04] MEDS: cefTRIAXone 1,000 MG in SYRINGE 1 EACH IV SCH (21:22)
[2019-01-04] MEDS: FLUoxetine 10 MG CAPSULE PO SCH (21:22)
[2019-01-04] MEDS: ROSUVASTATIN 20 MG TABLET PO SCH (21:22)
[2019-01-05] MEDS: INSULIN REGULAR 100 UNIT/ML SUBCUT SCH ×4 (00:10→17:11)
[2019-01-05] MEDS: ALBUTEROL/IPRATROPIUM 3 ML NEB RESP TX SCH ×4 (01:50→19:10)
[2019-01-05 05:26] LABS: Basophils % 0.1 % (0.0-0.8); Hematocrit 34.5 VOL% (42.0-52.0); Hemoglobin 11.3 GM/DL (14.0-18.0); Immature Granulocytes Absolute 0.24 #; Lymphocytes # 0.6 10*3/uL (1.4-4.0); Lymphocytes % 2.4 % (21.2-54.2); Mean Corpuscular HGB Conc 32.8 GM/DL (32-36); Mean Corpuscular Volume 93.5 FL (87-102); Mean Platelet Volume 12.3 FL (9.6-12.0); Monocytes % 4.8 % (1.7-12.7); Neutrophils % 91.7 % (38.7-73.9); Platelet Count 121 T/CUMM (130-400); Red Blood Count 3.69 MC/CUMM (3.8-5.5); Red Cell Distribution Width 13.2 % (9.3-17.3)
[2019-01-05] MEDS: methylPREDNISolone SOD SUC 40 MG/1 ML VIAL IV SCH ×2 (05:32→17:11)
[2019-01-05 05:40] LABS: Albumin 2.8 G/DL (3.4-5.0); Calcium 7.4 MG/DL (8.5-10.1); Osmolality,Calculated 334.8 MOS/KG (273-304)
[2019-01-05 05:43] LABS: Prealbumin 20.9 MG/DL (20-40)
[2019-01-05 05:52] LABS: Lymphocytes 3 % (20-55); Segmented Neutrophils 91 % (50-85); Total Cells Counted 100
[2019-01-05 05:53] LABS: Hypochromasia 1+; Ovalocytes Slight; Platelet Estimate Adequate
[2019-01-05] MEDS: NYSTATIN 500,000 UNIT/5 ML UDCUP SWISH/SWAL SCH ×4 (09:05→21:06)
[2019-01-05] MEDS: CARVEDILOL 25 MG TABLET PO SCH ×2 (09:05→17:12)
[2019-01-05] MEDS: TICAGRELOR 90 MG TABLET PO SCH ×2 (09:05→21:06)
[2019-01-05] MEDS: POTASSIUM CHLORIDE 20 MEQ/15 ML UDCUP PER TUBE SCH (09:05)
[2019-01-05] MEDS: INSULIN GLARGINE 100 UNIT/ML SUBCUT SCH (09:05)
[2019-01-05] MEDS: ASCORBIC ACID 500 MG TABLET PO SCH ×2 (09:05→21:06)
[2019-01-05] MEDS: LANSOPRAZOLE ODT 30 MG TABLET PER TUBE SCH (09:06)
[2019-01-05] MEDS: ASPIRIN CHEW 81 MG TABLET PO SCH (09:06)
[2019-01-05] MEDS: DESITIN 4OZ/NYSTATIN 15 GRAM MIXTURE PASTE TOP SCH ×2 (09:06→21:17)
[2019-01-05] MEDS: FLUoxetine 10 MG CAPSULE PO SCH ×2 (09:06→21:04)
[2019-01-05] MEDS: AMIODARONE 200 MG TABLET PO SCH ×2 (09:06→21:05)
[2019-01-05] MEDS: SODIUM CHLORIDE 5% OPH SOLN 15 ML BOTTLE BOTH EYES SCH ×2 (09:07→21:16)
[2019-01-05] MEDS: ALFUZOSIN 10 MG TABLET PO SCH (17:12)
[2019-01-05] MEDS: ROSUVASTATIN 20 MG TABLET PO SCH (21:04)
[2019-01-05] MEDS: cefTRIAXone 1,000 MG in SYRINGE 1 EACH IV SCH (21:07)
[2019-01-06] MEDS: ALBUTEROL/IPRATROPIUM 3 ML NEB RESP TX SCH ×4 (00:24→19:22)
[2019-01-06] MEDS: INSULIN REGULAR 100 UNIT/ML SUBCUT SCH ×4 (00:48→17:18)
[2019-01-06 05:47] LABS: Albumin 2.9 G/DL (3.4-5.0); Calcium 7.4 MG/DL (8.5-10.1); Osmolality,Calculated 330.7 MOS/KG (273-304)
[2019-01-06] MEDS: methylPREDNISolone SOD SUC 40 MG/1 ML VIAL IV SCH ×2 (06:28→18:10)
[2019-01-06] MEDS: ASPIRIN CHEW 81 MG TABLET PO SCH (08:42)
[2019-01-06] MEDS: AMIODARONE 200 MG TABLET PO SCH ×2 (08:42→21:27)
[2019-01-06] MEDS: ASCORBIC ACID 500 MG TABLET PO SCH ×2 (08:42→21:27)
[2019-01-06] MEDS: TICAGRELOR 90 MG TABLET PO SCH ×2 (08:42→21:28)
[2019-01-06] MEDS: CARVEDILOL 25 MG TABLET PO SCH ×2 (08:43→17:18)
[2019-01-06] MEDS: INSULIN GLARGINE 100 UNIT/ML SUBCUT SCH (08:43)
[2019-01-06] MEDS: FLUoxetine 10 MG CAPSULE PO SCH ×2 (08:43→21:27)
[2019-01-06] MEDS: POTASSIUM CHLORIDE 20 MEQ/15 ML UDCUP PER TUBE SCH (08:43)
[2019-01-06] MEDS: NYSTATIN 500,000 UNIT/5 ML UDCUP SWISH/SWAL SCH ×4 (08:43→21:28)
[2019-01-06] MEDS: SODIUM CHLORIDE 5% OPH SOLN 15 ML BOTTLE BOTH EYES SCH ×2 (08:44→21:28)
[2019-01-06] MEDS: DESITIN 4OZ/NYSTATIN 15 GRAM MIXTURE PASTE TOP SCH ×2 (08:44→21:35)
[2019-01-06] MEDS: LANSOPRAZOLE ODT 30 MG TABLET PER TUBE SCH (09:22)
[2019-01-06] MEDS: ALFUZOSIN 10 MG TABLET PO SCH (17:18)
[2019-01-06] MEDS: ROSUVASTATIN 20 MG TABLET PO SCH (21:27)
[2019-01-06] MEDS: cefTRIAXone 1,000 MG in SYRINGE 1 EACH IV SCH (21:29)
[2019-01-06] MEDS ORDERED: traZODone 50 MG TABLET PO SCH (22:15)
[2019-01-07] MEDS: ALBUTEROL/IPRATROPIUM 3 ML NEB RESP TX SCH ×4 (00:07→19:03)
[2019-01-07] MEDS: INSULIN REGULAR 100 UNIT/ML SUBCUT SCH ×4 (01:15→17:16)
[2019-01-07 04:47] LABS: Basophils % 0.1 % (0.0-0.8); Hemoglobin 10.7 GM/DL (14.0-18.0); Immature Granulocytes % 0.8 %; Immature Granulocytes Absolute 0.18 #; Lymphocytes # 0.5 10*3/uL (1.4-4.0); Lymphocytes % 2.4 % (21.2-54.2); Mean Corpuscular HGB Conc 32.4 GM/DL (32-36); Mean Corpuscular Volume 95.1 FL (87-102); Mean Platelet Volume 12.5 FL (9.6-12.0); Monocytes % 2.1 % (1.7-12.7); Neutrophils % 94.6 % (38.7-73.9); Platelet Count 108 T/CUMM (130-400); Red Blood Count 3.47 MC/CUMM (3.8-5.5); Red Cell Distribution Width 13.5 % (9.3-17.3); White Blood Count 22.2 T/CUMM (4-12)
[2019-01-07 05:06] LABS: Hypochromasia 1+; Lymphocytes 1 % (20-55); Ovalocytes Slight; Platelet Estimate Decreased; Segmented Neutrophils 96 % (50-85); Total Cells Counted 100
[2019-01-07 05:10] LABS: Calcium 7.7 MG/DL (8.5-10.1); Osmolality,Calculated 323.3 MOS/KG (273-304)
[2019-01-07] MEDS: methylPREDNISolone SOD SUC 40 MG/1 ML VIAL IV SCH (05:54)
[2019-01-07] MEDS: FLUoxetine 10 MG CAPSULE PO SCH ×2 (08:41→22:08)
[2019-01-07] MEDS: ASCORBIC ACID 500 MG TABLET PO SCH ×2 (08:41→22:09)
[2019-01-07] MEDS: TICAGRELOR 90 MG TABLET PO SCH ×2 (08:41→22:07)
[2019-01-07] MEDS: ASPIRIN CHEW 81 MG TABLET PO SCH (08:42)
[2019-01-07] MEDS: AMIODARONE 200 MG TABLET PO SCH ×2 (08:42→22:07)
[2019-01-07] MEDS: NYSTATIN 500,000 UNIT/5 ML UDCUP SWISH/SWAL SCH ×4 (08:42→22:06)
[2019-01-07] MEDS: POTASSIUM CHLORIDE 20 MEQ/15 ML UDCUP PER TUBE SCH (08:42)
[2019-01-07] MEDS: predniSONE 10 MG TABLET PO SCH (08:43)
[2019-01-07] MEDS: SODIUM CHLORIDE 5% OPH SOLN 15 ML BOTTLE BOTH EYES SCH ×2 (08:48→22:08)
[2019-01-07] MEDS: DESITIN 4OZ/NYSTATIN 15 GRAM MIXTURE PASTE TOP SCH ×2 (08:48→22:08)
[2019-01-07] MEDS: INSULIN GLARGINE 100 UNIT/ML SUBCUT SCH (08:50)
[2019-01-07] MEDS: CARVEDILOL 25 MG TABLET PO SCH ×2 (09:27→17:16)
[2019-01-07] MEDS: LANSOPRAZOLE ODT 30 MG TABLET PER TUBE SCH (10:32)
[2019-01-07] MEDS: amLODIPine 5 MG TABLET PO SCH (10:35)
[2019-01-07] MEDS: ALFUZOSIN 10 MG TABLET PO SCH (17:16)
[2019-01-07] MEDS ORDERED: traZODone 50 MG TABLET PO SCH (21:00)
[2019-01-07] MEDS: cefTRIAXone 1,000 MG in SYRINGE 1 EACH IV SCH (22:05)
[2019-01-07] MEDS: ROSUVASTATIN 20 MG TABLET PO SCH (22:07)
[2019-01-08] MEDS: ALBUTEROL/IPRATROPIUM 3 ML NEB RESP TX SCH ×3 (00:38→13:43)
[2019-01-08] MEDS: INSULIN REGULAR 100 UNIT/ML SUBCUT SCH ×3 (01:28→12:25)
[2019-01-08 02:59] LABS: Calcium 7.7 MG/DL (8.5-10.1); Osmolality,Calculated 321.3 MOS/KG (273-304)
[2019-01-08 03:02] LABS: Basophils % 0.1 % (0.0-0.8); Eosinophils % 0.1 % (0.00-10.9); Hematocrit 32.6 VOL% (42.0-52.0); Hemoglobin 10.7 GM/DL (14.0-18.0); Immature Granulocytes % 0.8 %; Immature Granulocytes Absolute 0.19 #; Lymphocytes # 0.5 10*3/uL (1.4-4.0); Lymphocytes % 2.3 % (21.2-54.2); Mean Corpuscular HGB Conc 32.8 GM/DL (32-36); Mean Platelet Volume 12.9 FL (9.6-12.0); Monocytes % 3.4 % (1.7-12.7); Neutrophils % 93.3 % (38.7-73.9); Platelet Count 109 T/CUMM (130-400); Red Blood Count 3.43 MC/CUMM (3.8-5.5); Red Cell Distribution Width 13.6 % (9.3-17.3); White Blood Count 22.6 T/CUMM (4-12)
[2019-01-08 03:36] LABS: Band Neutrophils 1 % (0-10); Lymphocytes 3 % (20-55); Segmented Neutrophils 93 % (50-85); Total Cells Counted 100
[2019-01-08 03:37] LABS: Platelet Estimate Adequate
[2019-01-08 03:56] LABS: HIV Antigen/Antibody Result Nonreactive (Nonreactive); Hepatitis B Surface Ag Quant < 0.10 Index; Hepatitis B Surface Ag Result Negative (Negative); Hepatitis C Virus Ab Quant < 0.02 Index; Hepatitis C Virus Ab Result Negative (Negative)
[2019-01-08] MEDS: AMIODARONE 200 MG TABLET PO SCH (08:36)
[2019-01-08] MEDS: ASPIRIN CHEW 81 MG TABLET PO SCH (08:37)
[2019-01-08] MEDS: predniSONE 10 MG TABLET PO SCH (08:37)
[2019-01-08] MEDS: LANSOPRAZOLE ODT 30 MG TABLET PER TUBE SCH (08:37)
[2019-01-08] MEDS: ASCORBIC ACID 500 MG TABLET PO SCH (08:37)
[2019-01-08] MEDS: amLODIPine 5 MG TABLET PO SCH (08:37)
[2019-01-08] MEDS: NYSTATIN 500,000 UNIT/5 ML UDCUP SWISH/SWAL SCH ×2 (08:37→12:25)
[2019-01-08] MEDS: FLUoxetine 10 MG CAPSULE PO SCH (08:37)
[2019-01-08] MEDS: TICAGRELOR 90 MG TABLET PO SCH (08:37)
[2019-01-08] MEDS: CARVEDILOL 25 MG TABLET PO SCH (08:38)
[2019-01-08] MEDS: INSULIN GLARGINE 100 UNIT/ML SUBCUT SCH (08:38)
[2019-01-08] MEDS: POTASSIUM CHLORIDE 20 MEQ/15 ML UDCUP PER TUBE SCH (08:39)
[2019-01-08] MEDS: SODIUM CHLORIDE 5% OPH SOLN 15 ML BOTTLE BOTH EYES SCH (08:40)
[2019-01-08] MEDS: DESITIN 4OZ/NYSTATIN 15 GRAM MIXTURE PASTE TOP SCH (08:40)
[2019-01-08 12:18] VITALS: BP 160/70
[2019-01-08] MEDS ORDERED: SODIUM POLYSTYRENE SULFATE 15 GM/60 ML BOTTLE PO ONE (14:02)
== END 2019-01-08 15:38 | disposition swing bed (61) | DRG 246 ==
LOC: N.ED 19:41 → N.EDINP 21:49 → N.CC 22:45 → N.TELES 01-02 16:16
PROVIDERS: ADMIT Family Medicine; ATTEND Family Medicine

== ENCOUNTER 2019-03-11 22:16 | Inpatient (IN) ==
[2019-03-12 01:05] LABS: Basophils # 0.1 10*3/uL (0.0-0.2); Basophils % 0.7 % (0.0-0.8); Eosinophils # 0.1 10*3/uL (0.0-0.87); Hematocrit 29.8 VOL% (42.0-52.0); Hemoglobin 9.8 GM/DL (14.0-18.0); Immature Granulocytes Absolute 0.09 #; Lymphocytes % 10.4 % (21.2-54.2); Mean Corpuscular HGB Conc 32.9 GM/DL (32-36); Mean Corpuscular Volume 100.7 FL (87-102); Mean Platelet Volume 10.1 FL (9.6-12.0); Monocytes % 13.1 % (1.7-12.7); Neutrophils % 73.8 % (38.7-73.9); Platelet Count 172 T/CUMM (130-400); Red Blood Count 2.96 MC/CUMM (3.8-5.5); White Blood Count 9.1 T/CUMM (4-12)
[2019-03-12 01:14] LABS: Apearance,Urine Slightly Hazy (Clear); Bacteria,Urine Occasional /HPF (Few); Bilirubin,Urine Negative (Negative); Blood, Urine Negative (Negative); Glucose,Urine (UA) Negative (Negative); Hyaline Casts,Urine 12 /LPF (0-3); Ketones,Urine Negative (Negative); Mucus,Urine Occasional /LPF (Occasional); Nitrite,Urine Negative (Negative); Protein,Urine 100 MG/DL; RBC,Urine 14 /HPF (0-4); Renal Epithelial Cells,Urine Occasional /HPF (<1); Squamous Epithelial Cell,Urine Occasional /HPF (0-10); Urine Color Yellow (Yellow); Urine Specific Gravity 1.012 (1.001-1.035); Urine Urobilinogen < 2.0 EU/DL (0.2-1.0); WBC,Urine 95 /HPF (0-6)
[2019-03-12 01:15] LABS: Albumin 2.9 G/DL (3.4-5.0); Bilirubin,Total 0.5 MG/DL (0.2-1.0); Calcium 9.4 MG/DL (8.5-10.1); Total Protein 6.6 G/DL (6.4-8.3)
[2019-03-12 01:16] LABS: Troponin I 0.073 NG/ML (0.00-0.045)
[2019-03-12] MEDS ORDERED: cefTRIAXone 1,000 MG in SODIUM CHLORIDE 0.9% 100 ML IV STA (02:33)
[2019-03-12] MEDS ORDERED: cefTRIAXone 500 MG VIAL ONE (02:41)
[2019-03-12] MEDS ORDERED: GLUCAGON 1 MG VIAL IM PRN ×3 (04:45→05:14)
[2019-03-12] MEDS ORDERED: DEXTROSE 50% 25 GM/50 ML VIAL IV PRN ×3 (04:45→05:14)
[2019-03-12] MEDS ORDERED: DOCUSATE SODIUM 100 MG CAPSULE PO PRN ×3 (04:45→05:14)
[2019-03-12] MEDS ORDERED: ACETAMINOPHEN 325 MG TABLET PO PRN ×2 (04:45→05:10)
[2019-03-12] MEDS ORDERED: ONDANSETRON 4 MG/2 ML VIAL IV PRN ×3 (04:45→05:14)
[2019-03-12] MEDS: ALBUTEROL/IPRATROPIUM 3 ML NEB RESP TX SCH ×3 (06:52→19:15)
[2019-03-12] MEDS ORDERED: ALBUTEROL/IPRATROPIUM 3 ML NEB RESP TX SCH ×2 (07:00)
[2019-03-12] MEDS ORDERED: INSULIN LISPRO 100 UNIT/ML SUBCUT SCH ×2 (07:30)
[2019-03-12] MEDS ORDERED: INFLUENZA VIRUS VACCINE 0.5 ML SYRINGE IM ONE (07:36)
[2019-03-12] MEDS ORDERED: ASCORBIC ACID 500 MG TABLET PO SCH ×2 (09:00)
[2019-03-12] MEDS ORDERED: TERAZOSIN 5 MG CAPSULE PO SCH ×2 (09:00)
[2019-03-12] MEDS ORDERED: INSULIN GLARGINE 100 UNIT/ML SUBCUT SCH ×2 (09:00)
[2019-03-12] MEDS ORDERED: MAGNESIUM CHLORIDE 64 MG PO SCH ×2 (09:00)
[2019-03-12] MEDS ORDERED: carvediloL 12.5 MG TABLET PO SCH ×2 (09:00)
[2019-03-12] MEDS ORDERED: MULTIVITAMIN (INTRINSIC) CAPSULE PO SCH ×2 (09:00)
[2019-03-12] MEDS ORDERED: CLOPIDOGREL 75 MG TABLET PO SCH ×2 (09:00)
[2019-03-12] MEDS ORDERED: SPIRONOLACTONE 25 MG TABLET PO SCH ×2 (09:00)
[2019-03-12] MEDS ORDERED: FUROSEMIDE 80 MG TABLET PO SCH ×2 (09:00)
[2019-03-12] MEDS ORDERED: ASPIRIN CHEW 81 MG TABLET PO SCH ×2 (09:00)
[2019-03-12] MEDS ORDERED: FLUoxetine 10 MG CAPSULE PO SCH ×2 (09:00)
[2019-03-12] MEDS: INSULIN GLARGINE 100 UNIT/ML SUBCUT SCH (09:40)
[2019-03-12] MEDS: FLUoxetine 10 MG CAPSULE PO SCH ×2 (09:41→21:05)
[2019-03-12] MEDS: INSULIN LISPRO 100 UNIT/ML SUBCUT SCH ×4 (09:41→21:52)
[2019-03-12] MEDS: TERAZOSIN 5 MG CAPSULE PO SCH (09:42)
[2019-03-12] MEDS: carvediloL 12.5 MG TABLET PO SCH ×2 (09:42→16:16)
[2019-03-12] MEDS: MAGNESIUM CHLORIDE 64 MG TABLET PO SCH ×2 (09:42→21:04)
[2019-03-12] MEDS: SPIRONOLACTONE 25 MG TABLET PO SCH (09:42)
[2019-03-12] MEDS: ASCORBIC ACID 500 MG TABLET PO SCH ×2 (09:43→21:04)
[2019-03-12] MEDS: FUROSEMIDE 80 MG TABLET PO SCH (09:43)
[2019-03-12] MEDS: CALCIUM CARBONATE CHEW 500 MG TABLET PO SCH ×3 (09:43→21:04)
[2019-03-12] MEDS: ASPIRIN CHEW 81 MG TABLET PO SCH (09:43)
[2019-03-12] MEDS: CLOPIDOGREL 75 MG TABLET PO SCH (09:53)
[2019-03-12] MEDS ORDERED: hydrALAZINE 25 MG TABLET PO SCH (10:00)
[2019-03-12] MEDS: MULTIVITAMIN (INTRINSIC) CAPSULE PO SCH ×2 (12:26→21:04)
[2019-03-12] MEDS: hydrALAZINE 10 MG TABLET PO SCH ×2 (18:02→21:04)
[2019-03-12] MEDS ORDERED: ROSUVASTATIN 20 MG TABLET PO SCH ×2 (21:00)
[2019-03-12] MEDS: ROSUVASTATIN 20 MG TABLET PO SCH (21:05)
[2019-03-12] MEDS: MIDODRINE 2.5 MG TABLET PO SCH (21:05)
[2019-03-12] MEDS ORDERED: ZIPRASIDONE 20 MG/1 ML VIAL IM PRN (22:29)
[2019-03-13] MEDS: ALBUTEROL/IPRATROPIUM 3 ML NEB RESP TX SCH ×4 (00:37→20:40)
[2019-03-13] MEDS ORDERED: cefTRIAXone 1,000 MG in SODIUM CHLORIDE 0.9% 100 ML IV SCH (03:00)
[2019-03-13] MEDS: cefTRIAXone 1,000 MG in SYRINGE 1 EACH IV SCH (04:07)
[2019-03-13 04:48] LABS: Basophils # 0.1 10*3/uL (0.0-0.2); Basophils % 0.5 % (0.0-0.8); Eosinophils # 0.2 10*3/uL (0.0-0.87); Eosinophils % 1.8 % (0.00-10.9); Hematocrit 26.9 VOL% (42.0-52.0); Hemoglobin 8.8 GM/DL (14.0-18.0); Immature Granulocytes % 0.6 %; Immature Granulocytes Absolute 0.06 #; Lymphocytes # 0.8 10*3/uL (1.4-4.0); Lymphocytes % 8.6 % (21.2-54.2); Mean Corpuscular HGB Conc 32.7 GM/DL (32-36); Mean Platelet Volume 10.3 FL (9.6-12.0); Monocytes % 13.5 % (1.7-12.7); Platelet Count 169 T/CUMM (130-400); Red Blood Count 2.69 MC/CUMM (3.8-5.5); Red Cell Distribution Width 14.7 % (9.3-17.3); White Blood Count 9.5 T/CUMM (4-12)
[2019-03-13 05:23] LABS: Calcium 8.9 MG/DL (8.5-10.1); Osmolality,Calculated 290.7 MOS/KG (273-304)
[2019-03-13 05:28] LABS: % Iron Saturation 12.4 % (18-50); Ferritin 293.2 ng/ml (26-388)
[2019-03-13 05:33] LABS: Folate > 24.0 NG/ML (5.4-24.0); Vitamin B12 1032 PG/ML (211-911)
[2019-03-13 05:34] LABS: Parathyroid Hormone Intact 11.3 PG/ML (18.4-80.1)
[2019-03-13 05:56] LABS: Sedimentation Rate-Westergren 88 MM/HR (0-20)
[2019-03-13 08:44] LABS: Hemoglobin A1 (Alkaline) 97.1 % (96.5-98.5); Hemoglobin A2 (Alkaline) 2.9 % (1.5-3.5)
[2019-03-13] MEDS: INSULIN LISPRO 100 UNIT/ML SUBCUT SCH ×4 (09:28→21:16)
[2019-03-13] MEDS: CALCIUM CARBONATE CHEW 500 MG TABLET PO SCH ×3 (09:28→21:16)
[2019-03-13] MEDS: INSULIN GLARGINE 100 UNIT/ML SUBCUT SCH (09:28)
[2019-03-13] MEDS: carvediloL 12.5 MG TABLET PO SCH ×2 (09:29→16:41)
[2019-03-13] MEDS: CLOPIDOGREL 75 MG TABLET PO SCH (09:29)
[2019-03-13] MEDS: TERAZOSIN 5 MG CAPSULE PO SCH (09:29)
[2019-03-13] MEDS: hydrALAZINE 10 MG TABLET PO SCH ×2 (09:29→21:16)
[2019-03-13] MEDS: MAGNESIUM CHLORIDE 64 MG TABLET PO SCH ×2 (09:29→21:16)
[2019-03-13] MEDS: FLUoxetine 10 MG CAPSULE PO SCH ×2 (09:29→21:14)
[2019-03-13] MEDS: SPIRONOLACTONE 25 MG TABLET PO SCH (09:29)
[2019-03-13] MEDS: ASPIRIN CHEW 81 MG TABLET PO SCH (09:30)
[2019-03-13] MEDS: FUROSEMIDE 80 MG TABLET PO SCH (09:30)
[2019-03-13] MEDS: MIDODRINE 2.5 MG TABLET PO SCH ×3 (09:30→21:16)
[2019-03-13] MEDS: ASCORBIC ACID 500 MG TABLET PO SCH ×2 (09:45→21:15)
[2019-03-13] MEDS: MULTIVITAMIN (INTRINSIC) CAPSULE PO SCH ×2 (09:45→21:26)
[2019-03-13] MEDS ORDERED: POTASSIUM CHLORIDE 10 MEQ TABLET PO ONE (13:43)
[2019-03-13] MEDS: FERROUS SULFATE ER 140 MG TABLET PO SCH ×2 (14:50→21:16)
[2019-03-13] MEDS: ROSUVASTATIN 20 MG TABLET PO SCH (21:15)
[2019-03-13] MEDS: TAMSULOSIN 0.4 MG CAPSULE PO SCH (21:16)
[2019-03-14] MEDS: ALBUTEROL/IPRATROPIUM 3 ML NEB RESP TX SCH ×4 (02:35→20:22)
[2019-03-14] MEDS: cefTRIAXone 1,000 MG in SYRINGE 1 EACH IV SCH (02:43)
[2019-03-14 07:05] LABS: Basophils # 0.1 10*3/uL (0.0-0.2); Basophils % 0.7 % (0.0-0.8); Eosinophils # 0.3 10*3/uL (0.0-0.87); Eosinophils % 3.5 % (0.00-10.9); Hematocrit 28.2 VOL% (42.0-52.0); Hemoglobin 9.1 GM/DL (14.0-18.0); Immature Granulocytes % 0.8 %; Immature Granulocytes Absolute 0.07 #; Lymphocytes # 0.9 10*3/uL (1.4-4.0); Lymphocytes % 11.2 % (21.2-54.2); Mean Corpuscular HGB Conc 32.3 GM/DL (32-36); Mean Corpuscular Volume 100.7 FL (87-102); Mean Platelet Volume 10.8 FL (9.6-12.0); Neutrophils % 69.8 % (38.7-73.9); Platelet Count 164 T/CUMM (130-400); Red Cell Distribution Width 14.8 % (9.3-17.3); White Blood Count 8.4 T/CUMM (4-12)
[2019-03-14 07:31] LABS: Calcium 8.7 MG/DL (8.5-10.1); Osmolality,Calculated 291.3 MOS/KG (273-304)
[2019-03-14] MEDS: INSULIN GLARGINE 100 UNIT/ML SUBCUT SCH (08:50)
[2019-03-14] MEDS: ASPIRIN CHEW 81 MG TABLET PO SCH (08:50)
[2019-03-14] MEDS: FERROUS SULFATE ER 140 MG TABLET PO SCH ×3 (08:50→20:40)
[2019-03-14] MEDS: INSULIN LISPRO 100 UNIT/ML SUBCUT SCH ×4 (08:50→21:03)
[2019-03-14] MEDS: MAGNESIUM CHLORIDE 64 MG TABLET PO SCH ×2 (08:51→20:40)
[2019-03-14] MEDS: CALCIUM CARBONATE CHEW 500 MG TABLET PO SCH ×3 (08:51→20:40)
[2019-03-14] MEDS: FLUoxetine 10 MG CAPSULE PO SCH ×2 (08:51→20:41)
[2019-03-14] MEDS: FUROSEMIDE 80 MG TABLET PO SCH (08:51)
[2019-03-14] MEDS: CLOPIDOGREL 75 MG TABLET PO SCH (08:51)
[2019-03-14] MEDS: MIDODRINE 2.5 MG TABLET PO SCH ×3 (08:51→20:40)
[2019-03-14] MEDS: SPIRONOLACTONE 25 MG TABLET PO SCH (08:51)
[2019-03-14] MEDS: FINASTERIDE 5 MG TABLET PO SCH (08:51)
[2019-03-14] MEDS: carvediloL 12.5 MG TABLET PO SCH ×2 (08:51→16:40)
[2019-03-14] MEDS: MULTIVITAMIN (INTRINSIC) CAPSULE PO SCH ×2 (08:51→20:42)
[2019-03-14] MEDS: ASCORBIC ACID 500 MG TABLET PO SCH ×2 (08:51→20:40)
[2019-03-14] MEDS: hydrALAZINE 10 MG TABLET PO SCH ×2 (08:51→20:40)
[2019-03-14] MEDS: SODIUM CHLORIDE 0.9% 1,000 ML IV SCH (12:33)
[2019-03-14] MEDS: CHOLECALCIFEROL 1,000 UNIT TABLET PO SCH (15:10)
[2019-03-14] MEDS: FLUCONAZOLE INJ 100 MG in IV BAG 1 EACH IV SCH (16:40)
[2019-03-14] MEDS: ROSUVASTATIN 20 MG TABLET PO SCH (20:40)
[2019-03-14] MEDS: TAMSULOSIN 0.4 MG CAPSULE PO SCH (20:41)
[2019-03-15] MEDS: ALBUTEROL/IPRATROPIUM 3 ML NEB RESP TX SCH ×4 (01:05→19:41)
[2019-03-15 06:23] LABS: Basophils # 0.1 10*3/uL (0.0-0.2); Basophils % 0.7 % (0.0-0.8); Eosinophils # 0.4 10*3/uL (0.0-0.87); Eosinophils % 3.6 % (0.00-10.9); Hemoglobin 9.7 GM/DL (14.0-18.0); Immature Granulocytes % 0.9 %; Immature Granulocytes Absolute 0.09 #; Lymphocytes % 9.9 % (21.2-54.2); Mean Corpuscular HGB Conc 32.3 GM/DL (32-36); Mean Platelet Volume 10.4 FL (9.6-12.0); Monocytes % 13.4 % (1.7-12.7); Neutrophils % 71.5 % (38.7-73.9); Platelet Count 179 T/CUMM (130-400); Red Blood Count 2.97 MC/CUMM (3.8-5.5); Red Cell Distribution Width 14.6 % (9.3-17.3); White Blood Count 9.7 T/CUMM (4-12)
[2019-03-15 06:50] LABS: Calcium 8.7 MG/DL (8.5-10.1)
[2019-03-15] MEDS: hydrALAZINE 10 MG TABLET PO SCH ×2 (08:20→21:02)
[2019-03-15] MEDS: ASPIRIN CHEW 81 MG TABLET PO SCH (08:25)
[2019-03-15] MEDS: MULTIVITAMIN (INTRINSIC) CAPSULE PO SCH ×2 (08:25→21:02)
[2019-03-15] MEDS: ASCORBIC ACID 500 MG TABLET PO SCH ×2 (08:26→21:02)
[2019-03-15] MEDS: FUROSEMIDE 80 MG TABLET PO SCH (08:26)
[2019-03-15] MEDS: SPIRONOLACTONE 25 MG TABLET PO SCH (08:26)
[2019-03-15] MEDS: MAGNESIUM CHLORIDE 64 MG TABLET PO SCH ×2 (08:26→21:02)
[2019-03-15] MEDS: INSULIN LISPRO 100 UNIT/ML SUBCUT SCH ×4 (08:26→21:06)
[2019-03-15] MEDS: CLOPIDOGREL 75 MG TABLET PO SCH (08:26)
[2019-03-15] MEDS: MIDODRINE 2.5 MG TABLET PO SCH ×3 (08:26→21:02)
[2019-03-15] MEDS: INSULIN GLARGINE 100 UNIT/ML SUBCUT SCH (08:26)
[2019-03-15] MEDS: FLUoxetine 10 MG CAPSULE PO SCH ×2 (08:26→21:02)
[2019-03-15] MEDS: carvediloL 12.5 MG TABLET PO SCH ×2 (08:27→16:07)
[2019-03-15] MEDS: CHOLECALCIFEROL 1,000 UNIT TABLET PO SCH (08:27)
[2019-03-15] MEDS: FERROUS SULFATE ER 140 MG TABLET PO SCH ×3 (08:27→21:02)
[2019-03-15] MEDS: FINASTERIDE 5 MG TABLET PO SCH (08:27)
[2019-03-15] MEDS: CALCIUM CARBONATE CHEW 500 MG TABLET PO SCH ×3 (08:27→21:01)
[2019-03-15] MEDS: SODIUM CHLORIDE 0.9% 1,000 ML IV SCH (12:49)
[2019-03-15] MEDS: FLUCONAZOLE INJ 100 MG in IV BAG 1 EACH IV SCH (16:14)
[2019-03-15] MEDS: TAMSULOSIN 0.4 MG CAPSULE PO SCH (21:02)
[2019-03-15] MEDS: ROSUVASTATIN 20 MG TABLET PO SCH (21:02)
[2019-03-16] MEDS: ALBUTEROL/IPRATROPIUM 3 ML NEB RESP TX SCH ×4 (00:44→19:13)
[2019-03-16 04:54] LABS: Basophils # 0.1 10*3/uL (0.0-0.2); Basophils % 0.5 % (0.0-0.8); Eosinophils # 0.3 10*3/uL (0.0-0.87); Eosinophils % 2.3 % (0.00-10.9); Hematocrit 29.9 VOL% (42.0-52.0); Hemoglobin 9.7 GM/DL (14.0-18.0); Immature Granulocytes Absolute 0.11 #; Lymphocytes # 1.1 10*3/uL (1.4-4.0); Lymphocytes % 9.5 % (21.2-54.2); Mean Corpuscular HGB Conc 32.4 GM/DL (32-36); Mean Corpuscular Volume 101.4 FL (87-102); Mean Platelet Volume 10.1 FL (9.6-12.0); Monocytes % 13.1 % (1.7-12.7); Neutrophils % 73.6 % (38.7-73.9); Platelet Count 192 T/CUMM (130-400); Red Blood Count 2.95 MC/CUMM (3.8-5.5); Red Cell Distribution Width 14.3 % (9.3-17.3); White Blood Count 11.6 T/CUMM (4-12)
[2019-03-16 05:10] LABS: Calcium 8.8 MG/DL (8.5-10.1); Osmolality,Calculated 282.8 MOS/KG (273-304)
[2019-03-16 05:12] LABS: Calcium 8.8 MG/DL (8.5-10.1); Osmolality,Calculated 285.7 MOS/KG (273-304)
[2019-03-16] MEDS: FERROUS SULFATE ER 140 MG TABLET PO SCH ×3 (09:42→22:43)
[2019-03-16] MEDS: MAGNESIUM CHLORIDE 64 MG TABLET PO SCH ×2 (09:42→22:43)
[2019-03-16] MEDS: ASCORBIC ACID 500 MG TABLET PO SCH ×2 (09:42→22:43)
[2019-03-16] MEDS: CHOLECALCIFEROL 1,000 UNIT TABLET PO SCH (09:42)
[2019-03-16] MEDS: FUROSEMIDE 80 MG TABLET PO SCH (09:43)
[2019-03-16] MEDS: hydrALAZINE 10 MG TABLET PO SCH ×2 (09:43→22:43)
[2019-03-16] MEDS: FLUoxetine 10 MG CAPSULE PO SCH ×2 (09:43→22:43)
[2019-03-16] MEDS: ASPIRIN CHEW 81 MG TABLET PO SCH (09:43)
[2019-03-16] MEDS: SPIRONOLACTONE 25 MG TABLET PO SCH (09:43)
[2019-03-16] MEDS: CLOPIDOGREL 75 MG TABLET PO SCH (09:43)
[2019-03-16] MEDS: FINASTERIDE 5 MG TABLET PO SCH (09:43)
[2019-03-16] MEDS: MIDODRINE 2.5 MG TABLET PO SCH ×2 (09:43→22:43)
[2019-03-16] MEDS: CALCIUM CARBONATE CHEW 500 MG TABLET PO SCH ×3 (09:44→22:43)
[2019-03-16] MEDS: MULTIVITAMIN (INTRINSIC) CAPSULE PO SCH ×2 (09:44→22:43)
[2019-03-16] MEDS: carvediloL 12.5 MG TABLET PO SCH ×2 (09:44→16:11)
[2019-03-16] MEDS: INSULIN GLARGINE 100 UNIT/ML SUBCUT SCH (09:52)
[2019-03-16] MEDS: INSULIN LISPRO 100 UNIT/ML SUBCUT SCH ×3 (09:52→16:14)
[2019-03-16] MEDS: SODIUM CHLORIDE 0.9% 1,000 ML IV SCH (10:29)
[2019-03-16] MEDS: ACETAMINOPHEN 325 MG TABLET PO PRN ×2 (11:48→16:26)
[2019-03-16] MEDS: FLUCONAZOLE INJ 100 MG in IV BAG 1 EACH IV SCH (16:12)
[2019-03-16] MEDS: TAMSULOSIN 0.4 MG CAPSULE PO SCH (22:43)
[2019-03-16] MEDS: ROSUVASTATIN 20 MG TABLET PO SCH (22:43)
[2019-03-17] MEDS: INSULIN LISPRO 100 UNIT/ML SUBCUT SCH ×3 (00:12→12:37)
[2019-03-17] MEDS: ALBUTEROL/IPRATROPIUM 3 ML NEB RESP TX SCH ×2 (00:30→07:19)
[2019-03-17] MEDS: CALCIUM CARBONATE CHEW 500 MG TABLET PO SCH (09:50)
[2019-03-17] MEDS: MAGNESIUM CHLORIDE 64 MG TABLET PO SCH (09:50)
[2019-03-17] MEDS: ASCORBIC ACID 500 MG TABLET PO SCH (09:50)
[2019-03-17] MEDS: CHOLECALCIFEROL 1,000 UNIT TABLET PO SCH (09:51)
[2019-03-17] MEDS: FERROUS SULFATE ER 140 MG TABLET PO SCH (09:51)
[2019-03-17] MEDS: MIDODRINE 2.5 MG TABLET PO SCH (09:51)
[2019-03-17] MEDS: FLUoxetine 10 MG CAPSULE PO SCH (09:51)
[2019-03-17] MEDS: SPIRONOLACTONE 25 MG TABLET PO SCH (09:51)
[2019-03-17] MEDS: FUROSEMIDE 80 MG TABLET PO SCH (09:51)
[2019-03-17] MEDS: ASPIRIN CHEW 81 MG TABLET PO SCH (09:51)
[2019-03-17] MEDS: FINASTERIDE 5 MG TABLET PO SCH (09:51)
[2019-03-17] MEDS: CLOPIDOGREL 75 MG TABLET PO SCH (09:51)
[2019-03-17] MEDS: carvediloL 12.5 MG TABLET PO SCH (09:51)
[2019-03-17] MEDS: hydrALAZINE 10 MG TABLET PO SCH (09:51)
[2019-03-17] MEDS: INSULIN GLARGINE 100 UNIT/ML SUBCUT SCH (10:02)
[2019-03-17] MEDS: MULTIVITAMIN (INTRINSIC) CAPSULE PO SCH (10:03)
[2019-03-17 12:11] VITALS: BP 100/47
== END 2019-03-17 13:31 | disposition home health service (06) | DRG 682 ==
LOC: N.ED 22:16 → N.EDINP 03-12 03:47 → N.ED 03-12 04:44 → N.2E 03-12 04:44
PROVIDERS: ADMIT Hospitalist; ATTEND Hospitalist

== ENCOUNTER 2019-03-23 14:23 | Inpatient (IN) ==
[2019-03-23 15:33] LABS: Basophils # 0.1 10*3/uL (0.0-0.2); Basophils % 0.3 % (0.0-0.8); Eosinophils % 0.2 % (0.00-10.9); Hematocrit 31.2 VOL% (42.0-52.0); Hemoglobin 10.2 GM/DL (14.0-18.0); Immature Granulocytes % 2.2 %; Immature Granulocytes Absolute 0.36 #; Lymphocytes # 0.7 10*3/uL (1.4-4.0); Lymphocytes % 4.2 % (21.2-54.2); Mean Corpuscular HGB Conc 32.7 GM/DL (32-36); Mean Corpuscular Volume 98.1 FL (87-102); Mean Platelet Volume 10.1 FL (9.6-12.0); Monocytes % 9.1 % (1.7-12.7); Platelet Count 263 T/CUMM (130-400); Red Blood Count 3.18 MC/CUMM (3.8-5.5); Red Cell Distribution Width 13.7 % (9.3-17.3); White Blood Count 16.3 T/CUMM (4-12)
[2019-03-23 15:41] LABS: Partial Thromboplastin Time 25.2 SECS (20.8-36.0)
[2019-03-23 15:50] LABS: Albumin 2.5 G/DL (3.4-5.0); Bilirubin,Total 0.8 MG/DL (0.2-1.0); Calcium 9.4 MG/DL (8.5-10.1); Total Protein 6.6 G/DL (6.4-8.3)
[2019-03-23] MEDS ORDERED: ONDANSETRON 4 MG/2 ML VIAL IV PRN (16:43)
[2019-03-23] MEDS ORDERED: GLUCAGON 1 MG VIAL IM PRN (16:43)
[2019-03-23] MEDS ORDERED: DEXTROSE 10% 25 GM/250 ML BAG IV PRN (16:43)
[2019-03-23 17:23] LABS: Anisocytosis 1+; Lymphocytes 8 % (20-55); Segmented Neutrophils 85 % (50-85); Total Cells Counted 100
[2019-03-23 17:24] LABS: Acanthocytes 1+; Elliptocytes 1+
[2019-03-23] MEDS: SODIUM CHLORIDE 0.9% 1,000 ML IV SCH (17:39)
[2019-03-23 17:47] LABS: Apearance,Urine Slightly Hazy (Clear); Bacteria,Urine Occasional /HPF (Few); Bilirubin,Urine Negative (Negative); Blood, Urine Small mg/dL (Negative); Glucose,Urine (UA) Negative (Negative); Hyaline Casts,Urine 10 /LPF (0-3); Ketones,Urine Negative (Negative); Mucus,Urine Occasional /LPF (Occasional); Nitrite,Urine Negative (Negative); Protein,Urine 100 MG/DL; RBC,Urine 73 /HPF (0-4); Squamous Epithelial Cell,Urine Occasional /HPF (0-10); Urine Color Yellow (Yellow); Urine Specific Gravity 1.012 (1.001-1.035); Urine Urobilinogen < 2.0 EU/DL (0.2-1.0); WBC,Urine 97 /HPF (0-6)
[2019-03-23] MEDS: ALBUTEROL/IPRATROPIUM 3 ML NEB RESP TX SCH (19:42)
[2019-03-23] MEDS: TAMSULOSIN 0.4 MG CAPSULE PO SCH (21:12)
[2019-03-23] MEDS: MAGNESIUM CHLORIDE 64 MG TABLET PO SCH (21:12)
[2019-03-23] MEDS: DOCUSATE SODIUM 100 MG CAPSULE PO SCH (21:12)
[2019-03-23] MEDS: FLUDROCORTISONE 0.1 MG TABLET PO SCH (21:12)
[2019-03-23] MEDS: ASCORBIC ACID 500 MG TABLET PO SCH (21:12)
[2019-03-23] MEDS: ROSUVASTATIN 20 MG TABLET PO SCH (21:12)
[2019-03-23] MEDS: MIDODRINE 2.5 MG TABLET PO SCH (21:27)
[2019-03-23] MEDS: FLUoxetine 10 MG CAPSULE PO SCH (21:27)
[2019-03-23] MEDS: INSULIN LISPRO 100 UNIT/ML SUBCUT SCH (21:46)
[2019-03-23] MEDS: cefTRIAXone 1,000 MG in SYRINGE 1 EACH IV SCH (22:20)
[2019-03-24] MEDS: ALBUTEROL/IPRATROPIUM 3 ML NEB RESP TX SCH ×4 (00:11→20:49)
[2019-03-24 05:48] LABS: Basophils # 0.1 10*3/uL (0.0-0.2); Basophils % 0.4 % (0.0-0.8); Eosinophils # 0.1 10*3/uL (0.0-0.87); Eosinophils % 0.9 % (0.00-10.9); Hematocrit 28.9 VOL% (42.0-52.0); Hemoglobin 9.5 GM/DL (14.0-18.0); Immature Granulocytes % 2.6 %; Lymphocytes # 0.8 10*3/uL (1.4-4.0); Lymphocytes % 7.1 % (21.2-54.2); Mean Corpuscular HGB Conc 32.9 GM/DL (32-36); Mean Platelet Volume 9.8 FL (9.6-12.0); Monocytes % 10.9 % (1.7-12.7); Neutrophils % 78.1 % (38.7-73.9); Platelet Count 237 T/CUMM (130-400); Red Blood Count 2.92 MC/CUMM (3.8-5.5); Red Cell Distribution Width 13.7 % (9.3-17.3); White Blood Count 11.7 T/CUMM (4-12)
[2019-03-24 06:21] LABS: Osmolality,Calculated 281.7 MOS/KG (273-304); Risk Ratio 2.7; VLDL CHOLESTEROL 15.2 MG/DL
[2019-03-24] MEDS: INSULIN LISPRO 100 UNIT/ML SUBCUT SCH ×4 (07:32→21:06)
[2019-03-24] MEDS: INSULIN GLARGINE 100 UNIT/ML SUBCUT SCH (09:47)
[2019-03-24] MEDS: ASPIRIN CHEW 81 MG TABLET PO SCH (09:49)
[2019-03-24] MEDS: MIDODRINE 2.5 MG TABLET PO SCH ×2 (09:49→21:06)
[2019-03-24] MEDS: FINASTERIDE 5 MG TABLET PO SCH (09:49)
[2019-03-24] MEDS: FLUDROCORTISONE 0.1 MG TABLET PO SCH ×2 (09:50→21:06)
[2019-03-24] MEDS: CALCIUM CARBONATE CHEW 500 MG TABLET PO SCH ×3 (09:50→16:52)
[2019-03-24] MEDS: DOCUSATE SODIUM 100 MG CAPSULE PO SCH ×2 (09:50→21:06)
[2019-03-24] MEDS: FLUoxetine 10 MG CAPSULE PO SCH ×2 (09:50→21:06)
[2019-03-24] MEDS: CLOPIDOGREL 75 MG TABLET PO SCH (09:50)
[2019-03-24] MEDS: SODIUM CHLORIDE 0.9% 1,000 ML IV SCH (09:50)
[2019-03-24] MEDS: FUROSEMIDE 40 MG TABLET PO SCH (09:50)
[2019-03-24] MEDS: ASCORBIC ACID 500 MG TABLET PO SCH ×2 (09:50→21:06)
[2019-03-24] MEDS: PANTOPRAZOLE 40 MG TABLET PO SCH (09:50)
[2019-03-24] MEDS: MAGNESIUM CHLORIDE 64 MG TABLET PO SCH ×2 (09:50→21:06)
[2019-03-24] MEDS: CHOLECALCIFEROL 1,000 UNIT TABLET PO SCH (09:50)
[2019-03-24] MEDS: TAMSULOSIN 0.4 MG CAPSULE PO SCH (21:06)
[2019-03-24] MEDS: ROSUVASTATIN 20 MG TABLET PO SCH (21:06)
[2019-03-24] MEDS: cefTRIAXone 1,000 MG in SYRINGE 1 EACH IV SCH (21:23)
[2019-03-25] MEDS: ALBUTEROL/IPRATROPIUM 3 ML NEB RESP TX SCH ×4 (00:10→19:22)
[2019-03-25] MEDS: SODIUM CHLORIDE 0.9% 1,000 ML IV SCH ×2 (04:00→18:20)
[2019-03-25 08:05] LABS: Calcium 8.2 MG/DL (8.5-10.1); Osmolality,Calculated 284.5 MOS/KG (273-304)
[2019-03-25] MEDS: FLUDROCORTISONE 0.1 MG TABLET PO SCH ×2 (08:25→20:47)
[2019-03-25] MEDS: CLOPIDOGREL 75 MG TABLET PO SCH (08:25)
[2019-03-25] MEDS: PANTOPRAZOLE 40 MG TABLET PO SCH (08:25)
[2019-03-25] MEDS: MAGNESIUM CHLORIDE 64 MG TABLET PO SCH ×2 (08:25→20:47)
[2019-03-25] MEDS: FINASTERIDE 5 MG TABLET PO SCH (08:25)
[2019-03-25] MEDS: ASCORBIC ACID 500 MG TABLET PO SCH ×2 (08:25→20:47)
[2019-03-25] MEDS: ASPIRIN CHEW 81 MG TABLET PO SCH (08:26)
[2019-03-25] MEDS: CHOLECALCIFEROL 1,000 UNIT TABLET PO SCH (08:26)
[2019-03-25] MEDS: FUROSEMIDE 40 MG TABLET PO SCH (08:26)
[2019-03-25] MEDS: CALCIUM CARBONATE CHEW 500 MG TABLET PO SCH ×3 (08:26→16:25)
[2019-03-25] MEDS: DOCUSATE SODIUM 100 MG CAPSULE PO SCH ×2 (08:26→20:47)
[2019-03-25] MEDS: INSULIN GLARGINE 100 UNIT/ML SUBCUT SCH (08:33)
[2019-03-25] MEDS: INSULIN LISPRO 100 UNIT/ML SUBCUT SCH ×4 (08:33→21:33)
[2019-03-25] MEDS: MIDODRINE 2.5 MG TABLET PO SCH ×2 (09:28→20:48)
[2019-03-25] MEDS: FLUoxetine 10 MG CAPSULE PO SCH ×2 (09:28→20:47)
[2019-03-25] MEDS ORDERED: POTASSIUM CHLORIDE 20 MEQ TABLET PO ONE (15:33)
[2019-03-25] MEDS: TAMSULOSIN 0.4 MG CAPSULE PO SCH (20:47)
[2019-03-25] MEDS: cefTRIAXone 1,000 MG in SYRINGE 1 EACH IV SCH (20:47)
[2019-03-25] MEDS: ROSUVASTATIN 20 MG TABLET PO SCH (20:47)
[2019-03-25] MEDS: ACETAMINOPHEN 325 MG TABLET PO PRN (23:27)
[2019-03-26] MEDS: ALBUTEROL/IPRATROPIUM 3 ML NEB RESP TX SCH ×4 (00:39→20:06)
[2019-03-26 03:04] LABS: Apearance,Urine CLOUDY (Clear); Bilirubin,Urine Negative (Negative); Blood, Urine Large mg/dL (Negative); Glucose,Urine (UA) Negative (Negative); Hyaline Casts,Urine 24 /LPF (0-3); Ketones,Urine Negative (Negative); Mucus,Urine Occasional /LPF (Occasional); Nitrite,Urine Negative (Negative); Protein,Urine 100 MG/DL; RBC,Urine 368 /HPF (0-4); Urine Color Yellow (Yellow); Urine Specific Gravity 1.016 (1.001-1.035); Urine Urobilinogen < 2.0 EU/DL (0.2-1.0); WBC,Urine 349 /HPF (0-6)
[2019-03-26] MEDS: INSULIN LISPRO 100 UNIT/ML SUBCUT SCH ×4 (08:56→21:22)
[2019-03-26] MEDS: ASPIRIN CHEW 81 MG TABLET PO SCH (09:24)
[2019-03-26] MEDS: MAGNESIUM CHLORIDE 64 MG TABLET PO SCH ×2 (09:25→21:44)
[2019-03-26] MEDS: CHOLECALCIFEROL 1,000 UNIT TABLET PO SCH (09:25)
[2019-03-26] MEDS: DOCUSATE SODIUM 100 MG CAPSULE PO SCH ×2 (09:25→21:44)
[2019-03-26] MEDS: FLUDROCORTISONE 0.1 MG TABLET PO SCH ×2 (09:25→21:44)
[2019-03-26] MEDS: CALCIUM CARBONATE CHEW 500 MG TABLET PO SCH ×3 (09:25→16:03)
[2019-03-26] MEDS: FINASTERIDE 5 MG TABLET PO SCH (09:25)
[2019-03-26] MEDS: CLOPIDOGREL 75 MG TABLET PO SCH (09:25)
[2019-03-26] MEDS: PANTOPRAZOLE 40 MG TABLET PO SCH (09:25)
[2019-03-26] MEDS: FLUoxetine 10 MG CAPSULE PO SCH ×2 (09:25→21:44)
[2019-03-26] MEDS: MIDODRINE 2.5 MG TABLET PO SCH ×2 (09:26→21:44)
[2019-03-26] MEDS: INSULIN GLARGINE 100 UNIT/ML SUBCUT SCH (09:26)
[2019-03-26] MEDS: FUROSEMIDE 40 MG TABLET PO SCH (09:26)
[2019-03-26] MEDS: ASCORBIC ACID 500 MG TABLET PO SCH ×2 (10:02→21:43)
[2019-03-26] MEDS: SODIUM CHLORIDE 0.9% 1,000 ML IV SCH ×2 (10:30→21:45)
[2019-03-26] MEDS: ACETAMINOPHEN 325 MG TABLET PO PRN (18:46)
[2019-03-26] MEDS: cefTRIAXone 1,000 MG in SYRINGE 1 EACH IV SCH (21:42)
[2019-03-26] MEDS: ROSUVASTATIN 20 MG TABLET PO SCH (21:43)
[2019-03-26] MEDS: TAMSULOSIN 0.4 MG CAPSULE PO SCH (21:43)
[2019-03-27] MEDS: ALBUTEROL/IPRATROPIUM 3 ML NEB RESP TX SCH ×2 (00:18→07:40)
[2019-03-27] MEDS: MIDODRINE 2.5 MG TABLET PO SCH (08:42)
[2019-03-27] MEDS: PANTOPRAZOLE 40 MG TABLET PO SCH (08:42)
[2019-03-27] MEDS: CLOPIDOGREL 75 MG TABLET PO SCH (08:42)
[2019-03-27] MEDS: CHOLECALCIFEROL 1,000 UNIT TABLET PO SCH (08:43)
[2019-03-27] MEDS: CALCIUM CARBONATE CHEW 500 MG TABLET PO SCH (08:43)
[2019-03-27] MEDS: MAGNESIUM CHLORIDE 64 MG TABLET PO SCH (08:43)
[2019-03-27] MEDS: ASCORBIC ACID 500 MG TABLET PO SCH (08:43)
[2019-03-27] MEDS: DOCUSATE SODIUM 100 MG CAPSULE PO SCH (08:43)
[2019-03-27] MEDS: FINASTERIDE 5 MG TABLET PO SCH (08:43)
[2019-03-27] MEDS: FUROSEMIDE 40 MG TABLET PO SCH (08:43)
[2019-03-27] MEDS: FLUDROCORTISONE 0.1 MG TABLET PO SCH (08:43)
[2019-03-27] MEDS: FLUoxetine 10 MG CAPSULE PO SCH (08:43)
[2019-03-27] MEDS: ASPIRIN CHEW 81 MG TABLET PO SCH (08:43)
[2019-03-27] MEDS: INSULIN GLARGINE 100 UNIT/ML SUBCUT SCH (08:49)
[2019-03-27] MEDS: INSULIN LISPRO 100 UNIT/ML SUBCUT SCH (08:49)
[2019-03-27 11:37] VITALS: BP 167/78
== END 2019-03-27 12:07 | disposition home health service (06) | DRG 312 ==
LOC: EDBD → EDUNIT# → N.ED 14:23 → N.EDINP 16:43 → N.2E 19:26
PROVIDERS: ADMIT Family Medicine; ATTEND Family Medicine